=== PATIENT | female | born 1935 | race Caucasian/White ===

== ENCOUNTER 2016-10-03 10:49 | Emergency (ER) | payer MEDICARE, OTHER ==
--- NOTE | 2016-10-03 12:32 | ER Document Report ---
ED Extremity Problem, Lower - General Chief Complaint: Knee Injury Stated Complaint: KNEE PAIN Time seen by provider: 12:27 Mode of Arrival: Medic Information source: Patient Notes: 81-year-old female presents to ED for report of her left knee popping when she was walking across the floor with her walker yesterday causing her to have to sit in her walker seat. She does have chronic pain in this leg and has for a long time. She just thinks that her pain is different than her normal pain. TRAVEL OUTSIDE OF THE [place] IN LAST 30 DAYS: No - HPI Patient complains to provider of: Pain, Swelling Location: Knee - Left Occurred: Other - Chronic Where: Home, Indoors Onset/Duration: Intermittent Quality of pain: Sharp Severity: Severe Pain Level: 5 Recent injury: Possibly Associated symptoms: Painful ambulation Exacerbated by: Movement, Walking Relieved by: Nothing - Related Data Allergies/Adverse Reactions: No Known Allergies Allergy (Verified 10/28/14 13:49) Past Medical History - General Information source: Patient - Social History Smoking Status: Never Smoker Cigarette use (# per day): No Chew tobacco use (# tins/day): No Smoking Education Provided: No Frequency of alcohol use: None Drug Abuse: None Lives with: Family Family History: Reviewed & Not Pertinent Patient has suicidal ideation: No Patient has homicidal ideation: No - Past Medical History Cardiac Medical History: Reports: Hx Atrial Fibrillation, Hx Hypercholesterolemia, Hx Hypertension, Hx Heart Murmur Pulmonary Medical History: Reports: Hx Pneumonia EENT Medical History: Reports: None Neurological Medical History: Reports: Hx Migraine Endocrine Medical History: Reports: None Renal/ Medical History: Reports: None Malignancy Medical History: Reports: None GI Medical History: Reports: Hx Gastroesophageal Reflux Disease, Hx Ulcer Musculoskeltal Medical History: 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 Denies: Hx Mastectomy, Hx Open Heart Surgery, Hx Pacemaker - Immunizations Hx Diphtheria, Pertussis, Tetanus Vaccination: No Hx Pneumococcal Vaccination: 06/23/14 Physical Exam - Vital signs Vitals: Temp Pulse Resp BP Pulse Ox 97.6 F 86 20 120/76 100 10/03/16 11:13 10/03/16 11:13 10/03/16 11:13 10/03/16 11:13 10/03/16 11:13 Interpretation: Normal - General General appearance: Appears well, Alert - HEENT Head: Normocephalic, Atraumatic Eyes: Normal Pupils: PERRL - Respiratory Respiratory status: No respiratory distress Chest status: Nontender Breath sounds: Normal Chest palpation: Normal - Cardiovascular Rhythm: Regular Heart sounds: Normal auscultation Murmur: No - Abdominal Inspection: Normal Distension: No distension Bowel sounds: Normal Tenderness: Nontender Organomegaly: No organomegaly - Back Back: Normal, Nontender - Extremities General upper extremity: Normal inspection, Nontender, Normal color, Normal ROM , Normal temperature General lower extremity: Normal color, Normal ROM, Normal temperature, Normal weight bearing. No: Karen's sign Knee: Tender - left swelling, Joint effusion, Laxity with varus stress, Pain with ROM, Patellar tendon intact, Tender joint line - Neurological Neuro grossly intact: Yes Cognition: Normal Orientation: AAOx4 Stacy Coma Scale Eye Opening: Spontaneous Stacy Coma Scale Verbal: Oriented Hardtner Coma Scale Motor: Obeys Commands Stacy Coma Scale Total: 15 Speech: Normal Motor strength normal: LUE, RUE, LLE, RLE Sensory: Normal - Psychological Associated symptoms: Normal affect, Normal mood - Skin Skin Temperature: Warm Skin Moisture: Dry Skin Color: Normal Course - Re-evaluation Re-evalutation: 10/03/16 14:21 Discussed x-ray with patient and family and written report given to family for follow-up with orthopedics. - Vital Signs Vital signs: Temp Pulse Resp BP Pulse Ox 97.6 F 96 20 114/56 L 96 10/03/16 11:13 10/03/16 15:09 10/03/16 11:13 10/03/16 13:57 10/03/16 15:09 - Diagnostic Test Radiology reviewed: Image reviewed, Reports reviewed Discharge - Discharge Clinical Impression: left knee arthritis severe Condition: Stable Disposition: HOME, SELF-CARE Additional Instructions: Arthritis Your symptoms are due to arthritis. Arthritis is an inflammation of the joints. There are many types -- osteoarthritis (due to "wear and tear"), auto- immmune arthritis (such as rheumatoid, lupus, Lauren's, and others), and crystal -induced arthritis (such as gout and pseudogout). The physician's examination, combined with laboratory tests, will determine the cause of your arthritis. All types of arthritis are treated with antiinflammatory medications. Other medication may be required for special types of arthritis, or if your problem does not respond to the antiinflammatory medicine. Local warmth may be helpful. Move the involved joints through the full range of motion daily. Mild exercise is usually still possible for most persons with arthritis (ask your physician). Swimming provides good exercise without damaging the joints. Contact the physician if you are worsening in any way. Left knee pain increased arthritis Oral Narcotic Medication You have been given a prescription for pain control. This medication is a narcotic. It's best taken with food, as nausea can result if taken on an empty stomach. Don't operate machinery or drive within six hours of taking this medication. Do not combine this medicine with alcohol, or with any medication which can cause sedation (such as cold tablets or sleeping pills) unless you get permission from the physician. Narcotics tend to cause constipation. If possible, drink plenty of fluids and eat a diet high in fiber and fruits. Please take a dose of Nila lax with every dose of narcotics. You use one Full of Nila lax in 8 ounces of water. FOLLOW-UP CARE: If you have been referred to a physician for follow-up care, call the physician s office for an appointment as you were instructed or within the next two days. If you experience worsening or a significant change in your symptoms, notify the physician immediately or return to the Emergency Department at any time for re-evaluation. Referrals: DERICK SORTO MD [Primary Care Provider] - Follow up as needed DOMINIC ROMERO MD [ACTIVE STAFF] - Follow up in 3-5 days
[2016-10-03 13:57] VITALS: BP 114/56
[2016-10-03] MEDS ORDERED: HYDROCODONE/ACETAMINOPHEN 5-325 MG 6 TAB/DSPK PO PRN (14:24)
== END 2016-10-03 15:07 | disposition home or self-care (01) ==
LOC: ER 10:49
DX: M17.12 Unilateral primary osteoarthritis, left knee (principal); G89.29 Other chronic pain; I48.91 Unspecified atrial fibrillation; E78.00 Pure hypercholesterolemia, unspecified; I10 Essential (primary) hypertension; K21.9 Gastro-esophageal reflux disease without esophagitis; Z90.49 Acquired absence of other specified parts of digestive tract; Z90.710 Acquired absence of both cervix and uterus
CPT/HCPCS: 99283; 73562; A9270

== ENCOUNTER → 2016-12-25 | Outpatient (CLI) | payer MEDICARE, OTHER ==
[2016-12-25 12:10] LABS: ANION GAP 14 (5-19); BLOOD UREA NITROGEN 17 mg/dL (7-20); CALCIUM 9.7 mg/dL (8.4-10.2); CARBON DIOXIDE 22 mmol/L (22-30); CHLORIDE 102 mmol/L (98-107); CHOLESTEROL 122.88 mg/dL (0-200); CREATININE RESULT 0.72 mg/dL (0.52-1.25); Direct HDL 60 mg/dL (>40); GLUCOSE 96 mg/dL (75-110); POTASSIUM 4.7 mmol/L (3.6-5.0); SODIUM 137.9 mmol/L (137-145); TRIGLYCERIDES 123 mg/dL (<150)
[2016-12-25 12:35] LABS: DIRECT LDL 34 mg/dL (<100)
== END ==
LOC: OD 11:04
PROVIDERS: ATTEND Family Medicine
DX: E03.9 Hypothyroidism, unspecified (principal); I10 Essential (primary) hypertension; Z79.899 Other long term (current) drug therapy; E78.2 Mixed hyperlipidemia
CPT/HCPCS: 36415; 80048; 80061; 83036; 84443

== ENCOUNTER → 2017-12-17 | Outpatient (CLI) | payer MEDICARE, OTHER ==
[2017-12-17 11:49] LABS: ANION GAP 12 (5-19); BLOOD UREA NITROGEN 24 mg/dL (7-20); CALCIUM 9.7 mg/dL (8.4-10.2); CARBON DIOXIDE 25 mmol/L (22-30); CHLORIDE 98 mmol/L (98-107); CHOLESTEROL 117.44 mg/dL (0-200); GLUCOSE 89 mg/dL (75-110); POTASSIUM 4.3 mmol/L (3.6-5.0); SODIUM 134.5 mmol/L (137-145); TRIGLYCERIDES 107 mg/dL (<150)
[2017-12-17 12:11] LABS: DIRECT LDL 32 mg/dL (<100)
== END ==
LOC: OD 10:33
PROVIDERS: ATTEND Family Medicine
DX: E03.9 Hypothyroidism, unspecified (principal); I10 Essential (primary) hypertension; Z79.899 Other long term (current) drug therapy; E78.2 Mixed hyperlipidemia
CPT/HCPCS: 36415; 80048; 80061; 83036; 84443

== ENCOUNTER → 2019-01-22 | Outpatient (CLI) | payer MEDICARE, OTHER ==
[2019-01-22 12:13] LABS: ANION GAP 11 (5-19); BLOOD UREA NITROGEN 13 mg/dL (7-20); CALCIUM 9.8 mg/dL (8.4-10.2); CARBON DIOXIDE 26 mmol/L (22-30); CHLORIDE 94 mmol/L (98-107); CHOLESTEROL 115.66 mg/dL (0-200); GLUCOSE 87 mg/dL (75-110); POTASSIUM 4.8 mmol/L (3.6-5.0); SODIUM 130.7 mmol/L (137-145); TRIGLYCERIDES 97 mg/dL (<150)
[2019-01-22 12:24] LABS: DIRECT LDL 39 mg/dL (<100)
== END ==
LOC: OD 10:55
PROVIDERS: ATTEND Family Medicine
DX: E03.9 Hypothyroidism, unspecified (principal); I10 Essential (primary) hypertension; E78.2 Mixed hyperlipidemia; Z79.899 Other long term (current) drug therapy
CPT/HCPCS: 36415; 80048; 80061; 83036; 84443

== ENCOUNTER → 2019-10-16 | Outpatient (CLI) | payer MEDICARE, OTHER ==
--- NOTE | 2019-10-16 15:12 | RADIOLOGY REPORT (SQ) ---
EXAM DESCRIPTION: ACUTE ABDOMEN SERIES COMPLETED DATE/TIME: 10/16/2019 2:36 pm REASON FOR STUDY: R10.9 UNSPECIFIED ABDOMINAL PAIN R10.9 UNSPECIFIED ABDOMINAL PAIN COMPARISON: None. NUMBER OF VIEWS: Three views. TECHNIQUE: Frontal chest, supine abdomen and upright/decubitus abdomen radiographic images acquired. LIMITATIONS: None. FINDINGS: CHEST: Lungs clear of infiltrates. FREE AIR: None. No abnormal gas collections. BOWEL GAS PATTERN: Nonobstructive pattern. No dilated loops or air fluid levels. CALCIFICATIONS: No suspicious calcifications. HARDWARE: None in the abdomen. SOFT TISSUES: No gross mass or suggestion of organomegaly. BONES: No acute fracture. No worrisome bone lesions. OTHER: No other significant finding. IMPRESSION: NO RADIOGRAPHIC EVIDENCE FOR ACUTE ABDOMINAL DISEASE. TECHNICAL DOCUMENTATION: JOB ID: [id number] [employer]- All Rights Reserved Reading location - IP/workstation name: [email or web address]
== END ==
LOC: RAD 13:58
PROVIDERS: ATTEND Family Medicine
DX: R10.9 Unspecified abdominal pain (principal); R07.9 Chest pain, unspecified; E66.01 Morbid (severe) obesity due to excess calories
CPT/HCPCS: 74022

== ENCOUNTER 2020-02-12 07:39 | Inpatient (IN) | payer MEDICARE, OTHER ==
[2020-02-12 08:32] LABS: HEMATOCRIT 37.9 % (36.0-47.0); HEMOGLOBIN 13.3 g/dL (12.0-15.5); MEAN CORPUSCULAR HEMOGLOBIN 31.8 pg (27.0-33.4); MEAN CORPUSCULAR HGB CONC 35.2 g/dL (32.0-36.0); MEAN CORPUSCULAR VOLUME 91 fl (80-97); PLATELET COUNT 298 10^3/uL (150-450); RED BLOOD COUNT 4.18 10^6/uL (3.72-5.28); WHITE BLOOD COUNT 27.7 10^3/uL (4.0-10.5)
[2020-02-12 08:50] LABS: APPEARANCE,URINE SLIGHTLY-CLOUDY; BILIRUBIN,URINE NEGATIVE (NEGATIVE); COLOR,URINE AMBER; GLUCOSE, URINE NEGATIVE (NEGATIVE); KETONES,URINE NEGATIVE (NEGATIVE); PROTEIN,URINE NEGATIVE (NEGATIVE); URINE SPECIFIC GRAVITY 1.016
[2020-02-12 08:55] LABS: ABSOLUTE LYMPHOCYTES# (MANUAL) 1.4 10^3/uL (0.5-4.7); ABSOLUTE MONOCYTES # (MANUAL) 1.1 10^3/uL (0.1-1.4); BASOPHILS % (MANUAL) 0 % (0-2); EOSINOPHILS % (MANUAL) 0 % (0-6); LYMPHOCYTES % (MANUAL) 5 % (13-45); MONOCYTES % (MANUAL) 4 % (3-13); SEGMENTED NEUTROPHILS % (MAN) 91 % (42-78); TOTAL CELLS COUNTED 100
[2020-02-12 08:56] LABS: ANISOCYTOSIS SLIGHT; PLATELET CLUMPS PRESENT; PLATELET COMMENT ADEQUATE; PLATELET LARGE PRESENT
[2020-02-12 08:58] LABS: HYPOCHROMASIA SLIGHT; OVALOCYTES SLIGHT
[2020-02-12 09:02] LABS: ALBUMIN 3.1 g/dL (3.5-5.0); ALKALINE PHOSPHATASE 97 U/L (38-126); ASPARTATE AMINO TRANSFERASE 29 U/L (14-36); BILIRUBIN,DIRECT 0.1 mg/dL (0.0-0.4); BLOOD UREA NITROGEN 27 mg/dL (7-20); CALCIUM 8.7 mg/dL (8.4-10.2); CARBON DIOXIDE 24 mmol/L (22-30); CHLORIDE 81 mmol/L (98-107); CREATINE KINASE 133 U/L (30-135); GLUCOSE 114 mg/dL (75-110); POTASSIUM 3.2 mmol/L (3.6-5.0); TOTAL PROTEIN 5.7 g/dL (6.3-8.2)
[2020-02-12 09:04] LABS: ANION GAP 13 (5-19)
[2020-02-12 09:18] LABS: CREATINE KINASE MB 3.04 ng/mL (<4.55); TROPONIN I 0.031 ng/mL
[2020-02-12] MEDS ORDERED: NORMAL SALINE IV ONE (09:48)
[2020-02-12] MEDS ORDERED: VANCOMYCIN HCL INJ 1000 MG VIAL IV ONE (09:48)
[2020-02-12] MEDS ORDERED: PIPERACILLIN/TAZOBACTAM 4.5 GM VIAL IV ONE (09:48)
--- NOTE | 2020-02-12 09:59 | ER Document Report ---
ED General - General Chief Complaint: Weakness Stated Complaint: LOW BLOOD PRESSURE Time Seen by Provider: 02/12/20 09:04 Primary Care Provider: DERICK VIVAR MD [Primary Care Provider] - Follow up as needed TRAVEL OUTSIDE OF THE [place] IN LAST 30 DAYS: No - HPI Notes: Chief complaint: Generalized weakness and fall History of present illness: 84-year-old female followed by Dr. Vivar with history of chronic atrial fibrillation and chronic lymphedema of both lower extremities essentially bedbound at home and cared for primarily by her grandson who is in his 30s now transported here via EMS after call for a fall at home when the she attempted to get up to the toilet. She has been having watery diarrhea for several days. She is weak and not eating and drinking well. She has recently developed shingles. She denies any recent treatment with antibiotics. She has been incontinent of urine. There are no known allergies. EMS reported blood pressure of 85 systolic at home. Her blood pressure came up above 120 after she received a 1 L bolus of lactated Ringer's per EMS. - Related Data Allergies/Adverse Reactions: No Known Allergies Allergy (Verified 04/15/19 05:51) Past Medical History - General Information source: Patient, Emergency Med Personnel, [facility] Records - Social History Smoking Status: Never Smoker Frequency of alcohol use: None Drug Abuse: None Family History: Reviewed & Not Pertinent Patient has homicidal ideation: No - Past Medical History Cardiac Medical History: Reports: Hx Atrial Fibrillation, Hx Hypercholesterolemia, Hx Hypertension, Hx Heart Murmur Denies: Hx Coronary Artery Disease, Hx Heart Attack Pulmonary Medical History: Denies: Hx Asthma, Hx Bronchitis, Hx COPD, Hx Pneumonia Neurological Medical History: Reports: Hx Migraine. Denies: Hx Cerebrovascular Accident, Hx Seizures GI Medical History: Reports: Hx Gastroesophageal Reflux Disease, Hx Ulcer. 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 Denies: Hx Mastectomy, Hx Open Heart Surgery, Hx Pacemaker - Immunizations Hx Diphtheria, Pertussis, Tetanus Vaccination: - UNSURE Hx Pneumococcal Vaccination: 06/23/14 Review of Systems - Review of Systems Notes: Constitutional: Generalized weakness. Negative for fever. HENT: Negative for sore throat. Eyes: Negative for visual changes. Cardiovascular: Negative for chest pain. Respiratory: Negative for shortness of breath. Gastrointestinal: As per HPI. Genitourinary: Negative for dysuria. Musculoskeletal: Negative for back pain. Skin: As per HPI. Neurological: Negative for headaches, focal weakness or numbness. 10 point ROS negative except as marked above and in HPI. Physical Exam - Vital signs Vitals: Temp Pulse Resp BP Pulse Ox 97.8 F 78 20 109/72 95 02/12/20 08:23 02/12/20 08:23 02/12/20 08:23 02/12/20 08:23 02/12/20 08:23 - Notes Notes: GENERAL: Frail elderly female who appears dehydrated and very weak. SKIN: Pale with diminished turgor. Crusted pustules over the left posterior lateral chest area consistent with herpes zoster. HEAD: Mild bitemporal wasting. EYES: Eyes appear sunken PERRLA. EOMI. Conjunctivae pale and sclerae clear. EARS: CANALS AND TMS CLEAR. NOSE: CLEAR. MOUTH: Tacky mucosa. Poor dentition. No stridor or edema. No drooling. NECK: Supple. No masses or thyromegaly. No adenopathy. Carotids 2+ without bruits. No JVD. BACK: Symmetrical without tenderness. CHEST: Respirations unlabored. Breath sounds clear and symmetrical. HEART: Regular rhythm. No murmur gallop or rub. ABDOMEN: Multiple healed surgical scars. Soft nontender without masses, organomegaly or rebound. Bowel sounds normally active. No bruits. GENITALIA: Normal female. EXTREMITIES: 4+ lymphedema both lower extremities. Muscular wasting of both feet with crusting lichenification of the plantar aspect of the left foot. No calf tenderness. Cap refill less than 1.5 seconds. Dorsalis pedis and posterior tibial pulses 2 + and symmetrical. NEUROLOGICAL: GCS 15. Alert and oriented x3. Fluent speech. Cranial nerves II through XII intact. Sensorimotor and cerebellar normal. Normal tone. PSYCHIATRIC: Appropriate affect. Course - Re-evaluation Re-evalutation: 02/12/20 12:59 This lady is hyponatremic and hypokalemic and clinically looks septic. Her lactate is elevated 2.7. She was hypotensive when EMS got her a lows this corrected with IV crystalloids. She has 27,000 white count. Source of infection is not clear current. Her urine is unremarkable. She has mild acute kidney injury with a creatinine of 1.27. Her chest x-ray is normal. I performed a CT abdomen and pelvis and she has postsurgical changes and some nonspecific dilated loops of small bowel most consistent with ileus. Blood cultures were drawn. I have started her on IV Zosyn and vancomycin. She is getting additional IV hydration. Case has been discussed with and she will be admitted to the hospitalist service. - Vital Signs Vital signs: Temp Pulse Resp BP Pulse Ox 97.7 F 78 17 141/86 H 95 02/12/20 10:18 02/12/20 08:23 02/12/20 10:18 02/12/20 10:18 02/12/20 09:53 - Laboratory Result Diagrams: 02/12/20 07:56 02/12/20 07:56 Laboratory results interpreted by me: 02/12/20 02/12/20 02/12/20 07:56 07:56 07:56 WBC 27.7 H Seg Neuts % (Manual) 91 H Lymphocytes % (Manual) 5 L Abs Neuts (Manual) 25.2 H Sodium 118.1 L* Potassium 3.2 L Chloride 81 L BUN 27 H Creatinine 1.28 H Est GFR ( Amer) 48 L Est GFR (MDRD) Non-Af 40 L Glucose 114 H Lactic Acid 2.6 H Total Protein 5.7 L Albumin 3.1 L Urine Urobilinogen 02/12/20 07:56 WBC Seg Neuts % (Manual) Lymphocytes % (Manual) Abs Neuts (Manual) Sodium Potassium Chloride BUN Creatinine Est GFR ( Amer) Est GFR (MDRD) Non-Af Glucose Lactic Acid Total Protein Albumin Urine Urobilinogen 2.0 H - EKG Interpretation by Me Additional EKG results interpreted by me: 02/12/20 13:09 Twelve-lead EKG from 0855 hrs. reviewed contemporaneously by me demonstrating atrial fibrillation with a ventricular rate of 96. Intervals are normal. Occasional unifocal PVCs present. No acute ST changes. Comparison to prior tracing from 04/08/2019 shows interval development of PVCs with no other new findings. Discharge - Discharge Clinical Impression: Hyponatremia, Hypokalemia Sepsis Qualifiers: Sepsis type: sepsis due to unspecified organism Sepsis acute organ dysfunction status: unspecified Qualified Code(s): A41.9 - Sepsis, unspecified organism Condition: Fair Disposition: ADMITTED INPATIENT Admitting Provider: Princess (Hospitalist) Unit Admitted: Telemetry Referrals: DERICK VIVAR MD [Primary Care Provider] - Follow up as needed
[2020-02-12 10:01] LABS: VENOUS BLOOD BASE EXCESS 0.7 mmol/L; VENOUS BLOOD HCO3 25.9 mmol/L (20-32); VENOUS BLOOD PCO2 43.6 mmHg (35-63); VENOUS BLOOD PH 7.39 (7.30-7.42)
[2020-02-12 10:11] LABS: PROTHROMBIN TIME 15.3 SEC (11.4-15.4)
--- NOTE | 2020-02-12 10:15 | RADIOLOGY REPORT (SQ) ---
EXAM DESCRIPTION: CHEST SINGLE VIEW IMAGES COMPLETED DATE/TIME: 02/12/2020 10:07 am REASON FOR STUDY: sepsis COMPARISON: 07/24/2014. EXAM PARAMETERS: NUMBER OF VIEWS: One view. TECHNIQUE: Single frontal radiographic view of the chest acquired. RADIATION DOSE: NA LIMITATIONS: None. FINDINGS: LUNGS AND PLEURA: No opacities, masses or pneumothorax. No pleural effusion. MEDIASTINUM AND HILAR STRUCTURES: No masses. Contour normal. HEART AND VASCULAR STRUCTURES: Heart normal in size. Ectatic aorta. Normal vasculature. BONES: No acute findings. HARDWARE: Clips in the upper abdomen. OTHER: No other significant finding. IMPRESSION: NO ACUTE RADIOGRAPHIC FINDING IN THE CHEST. TECHNICAL DOCUMENTATION: JOB ID: [id number] 2010 [email or web address]- All Rights Reserved Reading location - IP/workstation name: [email or web address]
--- NOTE | 2020-02-12 11:37 | EKG REPORT ---
SEVERITY:- ABNORMAL ECG - ATRIAL FIBRILLATION, V-RATE 79-115 MULTIPLE VENTRICULAR PREMATURE COMPLEXES NONSPECIFIC REPOL ABNORMALITY, DIFFUSE LEADS, THESE ARE NEW IN THE ANTEROLAT LEADS COMPARED TO EKG. : Confirmed by: Yoseph Pierson MD 12-Feb-2020 11:36:46
--- NOTE | 2020-02-12 12:09 | RADIOLOGY REPORT (SQ) ---
EXAM DESCRIPTION: CT ABD/PELVIS WITH IV ONLY IMAGES COMPLETED DATE/TIME: 02/12/2020 11:20 am REASON FOR STUDY: sepsis COMPARISON: None. TECHNIQUE: CT scan of the abdomen and pelvis performed using helical scanning technique with dynamic intravenous contrast injection. No oral contrast. Images reviewed with lung, soft tissue, and bone windows. Reconstructed coronal and sagittal MPR images reviewed. Delayed images for evaluation of the urinary system also acquired. All images stored on PACS. All CT scanners at this facility use dose modulation, iterative reconstruction, and/or weight based d osing when appropriate to reduce radiation dose to as low as reasonably achievable (ALARA). [facility]: Dose Right [facility]: CareDose [facility]: Dose Right [facility]: Teradose 4D [facility]: Buggl CONTRAST TYPE AND DOSE: contrast/concentration: Isovue 350.00 mg/ml; Total Contrast Delivered: 81.0 ml; Total Saline Delivered: 68.0 ml RENAL FUNCTION: BUN 27 creatinine 1.28. RADIATION DOSE: CT Rad equipment meets quality standard of care and radiation dose reduction techniq ues were employed. CTDIvol: 10.8 - 15.1 mGy. DLP: 1210 mGy-cm.. LIMITATIONS: None. FINDINGS: LOWER CHEST: No significant findings. No nodules or infiltrates. LIVER: Normal size. No masses. No dilated ducts. SPLEEN: Normal size. No focal lesions. PANCREAS: No masses. No significant calcifications. No adjacent inflammation or peripancreatic fluid collections. Pancreatic duct not dilated. GALLBLADDER: Surgically absent. ADRENAL GLANDS: No significant masses or asymmetry. RIGHT KIDNEY AND URETER: No solid masses. No significant calcifications. No hydronephrosis or hyd roureter. LEFT KIDNEY AND URETER: No solid masses. No significant calcifications. No hydronephrosis or hydr oureter. AORTA AND VESSELS: No aneurysm. No dissection. Renal arteries, SMA, celiac without stenosis. RETROPERITONEUM: No retroperitoneal adenopathy, hemorrhage or masses. BOWEL AND PERITONEAL CAVITY: Surgical changes. Numerous clips in the left upper quadrant. Prominent stool in the rectum. Mild diffuse small bowel dilation throughout. No masses or inflammatory robbins es. No free fluid or peritoneal masses. APPENDIX: Surgically absent. PELVIS: No mass. No free fluid. Catheter in the bladder. ABDOMINAL WALL: No masses. No hernias. BONES: No significant or acute findings. Degenerative changes in the spine. OTHER: No other significant finding. IMPRESSION: 1. SURGICAL CHANGES IN THE ABDOMEN. MILD DIFFUSE SMALL BOWEL DILATION PROBABLY DUE TO ILEUS. MECHAN ICAL OBSTRUCTION LESS LIKELY BUT CANNOT BE EXCLUDED. THERE IS PROMINENT STOOL IN THE RECTUM WHICH CO ULD BE A FECAL IMPACTION. 2. OTHER CHRONIC CHANGES ABOVE. NO OTHER SIGNIFICANT OR ACUTE FINDING IN THE ABDOMEN OR PELVIS ON CT SCAN WITH IV CONTRAST. TECHNICAL DOCUMENTATION: JOB ID: [id number] Quality ID # [id number]: Final reports with documentation of one or more dose reduction techniques (e.g., Au tomated exposure control, adjustment of the mA and/or kV according to patient size, use of iterative reconstruction technique) 2010 [employer]- All Rights Reserved Reading location - IP/workstation name: [email or web address]
[2020-02-12] MEDS ORDERED: ACETAMINOPHEN 325 MG TABLET PO ONE (14:47)
[2020-02-12 14:48] LABS: ANION GAP 11 (5-19); BLOOD UREA NITROGEN 27 mg/dL (7-20); CALCIUM 8.1 mg/dL (8.4-10.2); CARBON DIOXIDE 22 mmol/L (22-30); CHLORIDE 86 mmol/L (98-107); GLUCOSE 110 mg/dL (75-110); POTASSIUM 3.6 mmol/L (3.6-5.0)
[2020-02-12] MEDS ORDERED: NORMAL SALINE 1000 ML 1,000 ML IV PRN (15:09)
[2020-02-12 15:24] LABS: C DIFFICILE GDH NEGATIVE (NEGATIVE)
[2020-02-12] MEDS: VALACYCLOVIR HCL 500 MG TABLET PO SCH (15:28)
--- NOTE | 2020-02-12 16:33 | PDOC H&P ---
History of Present Illness Admission Date/PCP: 02/12/20 13:41 DERICK SORTO MD History of Present Illness: TRINIDAD REHMAN is a 84 year old female with multiple medical comorbidities who is an awful historian. The information is therefore obtained from the chart. From what I can gather, the patient was sent here after falling off the toilet at home. She is cared for by her daughter and her son-in-law, and they could not get her up off the floor so they called EMS. They then notified someone that they could not take care of her at home anymore. Apparently she is gotten progressively weaker and more frail. I do not have any information about her recent level of p.o. intake. Her apparently when EMS came to get her as her blood pressure was low and so they gave her 1 L of LR. I brought her in the ER where she had an elevated BUN and creatinine, and a sodium of 118. She also had a leukocytosis. She was afebrile. The only thing she was complaining of was not having gotten her pain medication. She got 2 more liters of IV normal saline rapidly infused. Fortunately, this did not cause her sodium to elevate when it was checked several hours later. CT of her abdomen was unremarkable except for a mild ileus and a large stool burden. Chest x-ray was negative. Patient has had multiple loose bowel movements that were mostly watery without a lot of solid stool in the ER. She had an elevated temperature of the ER but no outright fever. She has an area on her sacrum of a suspected deep tissue injury but no broken skin. Urinalysis was unremarkable. She also has a large rash on the left side of her lower chest and upper abdomen. 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, DOMONIQUE HANDS Psychiatric Medical History: Reports: Depression Hematology: Denies: Anemia, Sickle Cell Disease Past Surgical History Past Surgical History: Reports: Appendectomy, Cholecystectomy, Hysterectomy, Tonsillectomy Denies: Amputation, Mastectomy, Pacemaker Social History Smoking Status: Never Smoker Frequency of Alcohol Use: None Hx Recreational Drug Use: No Hx Prescription Drug Abuse: No Family History Family History: Reviewed & Not Pertinent Parental Family History Reviewed: No - Unable to obtain Children Family History Reviewed: No - Unable to obtain Sibling(s) Family History Reviewed.: No - Unable to obtain Medication/Allergy Home Medications: Atorvastatin Calcium 20 mg PO DAILY 10/28/14 Candesartan/Hydrochlorothiazid [Candesartan-Hctz 16-12.5 mg Tb] 1 tab PO DAILY 03/15/16 Cetirizine HCl [Zyrtec] 10 mg PO QHS 03/15/16 Diltiazem HCl [Diltiazem 24Hr ER] 120 mg PO DAILY 03/15/16 Raloxifene HCl 60 mg PO DAILY 03/15/16 Carisoprodol [Soma] 350 mg PO TIDP PRN 04/08/19 Meloxicam [Mobic] 7.5 mg PO DAILY 04/08/19 Valacyclovir HCl [Valtrex] 1,000 mg PO TID 02/12/20 Allergies/Adverse Reactions: No Known Allergies Allergy (Verified 04/15/19 05:51) Review of Systems ROS unobtainable: Other - Part of it could be mental status, but I think this patient is also a very poor historian Physical Exam Vital Signs: Temp Pulse Resp BP Pulse Ox 100.2 F 78 19 103/55 L 95 02/12/20 15:31 02/12/20 08:23 02/12/20 15:31 02/12/20 15:31 02/12/20 09:53 Intake & Output 02/11/20 02/12/20 02/13/20 06:59 06:59 06:59 Intake Total 2120 Output Total 650 Balance 1470 Weight 70.8 kg General appearance: PRESENT: no acute distress, cooperative, disheveled, morbidly obese, other - She appears extremely frail Head exam: PRESENT: atraumatic, normocephalic Eye exam: PRESENT: EOMI, PERRLA. ABSENT: conjunctival injection, scleral icterus Ear exam: PRESENT: normal external ear exam Mouth exam: PRESENT: dry mucosa, neck supple Teeth exam: PRESENT: poor dentation Throat exam: ABSENT: post pharyngeal erythema Neck exam: PRESENT: full ROM. ABSENT: carotid bruit, JVD, lymphadenopathy, meningismus, tenderness, thyromegaly Respiratory exam: PRESENT: clear to auscultation domonique, symmetrical, unlabored. ABSENT: chest wall tenderness, crackles, prolonged expiratory phas, rhonchi, tachypnea, wheezes Cardiovascular exam: PRESENT: irregular rhythm, +S1, +S2 Pulses: PRESENT: normal carotid pulses Vascular exam: PRESENT: normal capillary refill GI/Abdominal exam: PRESENT: normal bowel sounds, soft. ABSENT: distended, guar ding, rebound, tenderness Extremities exam: PRESENT: pedal edema, other - 3+ pitting edema. 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 ABSENT: ambulatory Neurological exam: PRESENT: awake, oriented to person, oriented to place, oriented to situation, CN II-XII grossly intact. ABSENT: motor sensory deficit Psychiatric exam: PRESENT: flat affect Skin exam: PRESENT: dry, warm, other - She has what appears to be a zoster rash in a dermatomal distribution under the left lower chest under the breast around the left lower chest towards the upper back. Results Laboratory Results: 02/12/20 07:56 02/12/20 14:19 02/12/20 02/12/20 02/12/20 07:54 07:56 07:56 WBC 27.7 H RBC 4.18 Hgb 13.3 Hct 37.9 MCV 91 MCH 31.8 MCHC 35.2 RDW 14.0 Plt Count 298 Seg Neutrophils % Not Reportable VBG pH VBG pCO2 VBG HCO3 VBG Base Excess Sodium 118.1 L* Potassium 3.2 L Chloride 81 L Carbon Dioxide 24 Anion Gap 13 BUN 27 H Creatinine 1.28 H Est GFR ( Amer) 48 L Glucose 114 H Lactic Acid Calcium 8.7 Total Bilirubin 1.0 AST 29 Alkaline Phosphatase 97 Total Protein 5.7 L Albumin 3.1 L TSH Urine Color Cancelled Urine Appearance Cancelled Urine pH Cancelled Ur Specific [place] Cancelled Urine Protein Cancelled Urine Glucose (UA) Cancelled Urine Ketones Cancelled Urine Blood Cancelled Urine RBC (Auto) Cancelled 02/12/20 02/12/20 02/12/20 07:56 07:56 09:35 WBC RBC Hgb Hct MCV MCH MCHC RDW Plt Count Seg Neutrophils % VBG pH 7.39 VBG pCO2 43.6 VBG HCO3 25.9 VBG Base Excess 0.7 Sodium Potassium Chloride Carbon Dioxide Anion Gap BUN Creatinine Est GFR ( Amer) Glucose Lactic Acid 2.6 H Calcium Total Bilirubin AST Alkaline Phosphatase Total Protein Albumin TSH Urine Color DELFINO Urine Appearance SLIGHTLY-CLOUDY Urine pH 5.0 Ur Specific [place] 1.016 Urine Protein NEGATIVE Urine Glucose (UA) NEGATIVE Urine Ketones NEGATIVE Urine Blood NEGATIVE Urine RBC (Auto) 1 02/12/20 02/12/20 02/12/20 12:04 14:19 14:19 WBC RBC Hgb Hct MCV MCH MCHC RDW Plt Count Seg Neutrophils % VBG pH VBG pCO2 VBG HCO3 VBG Base Excess Sodium 118.6 L* Potassium 3.6 Chloride 86 L Carbon Dioxide 22 Anion Gap 11 BUN 27 H Creatinine 1.03 Est GFR ( Amer) > 60 Glucose 110 Lactic Acid 1.5 Calcium 8.1 L Total Bilirubin AST Alkaline Phosphatase Total Protein Albumin TSH 1.16 Urine Color Urine Appearance Urine pH Ur Specific [place] Urine Protein Urine Glucose (UA) Urine Ketones Urine Blood Urine RBC (Auto) 02/12/20 02/12/20 07:56 07:56 Creatine Kinase 133 CK-MB (CK-2) 3.04 Troponin I 0.031 Impressions: Chest X-Ray 02/12/20 09:49 IMPRESSION: NO ACUTE RADIOGRAPHIC FINDING IN THE CHEST. Abdomen/Pelvis CT 02/12/20 10:37 IMPRESSION: 1. SURGICAL CHANGES IN THE ABDOMEN. MILD DIFFUSE SMALL BOWEL DILATION PROBABLY DUE TO ILEUS. MECHANICAL OBSTRUCTION LESS LIKELY BUT CANNOT BE EXCLUDED. THERE IS PROMINENT STOOL IN THE RECTUM WHICH COULD BE A FECAL IMPACTION. 2. OTHER CHRONIC CHANGES ABOVE. NO OTHER SIGNIFICANT OR ACUTE FINDING IN THE ABDOMEN OR PELVIS ON CT SCAN WITH IV CONTRAST. Assessment and Plan - Diagnosis (1) Leukocytosis Qualifiers: Leukocytosis type: other Qualified Code(s): D72.828 - Other elevated white blood cell count Is this a current diagnosis for this admission?: Yes Plan: She triggered for sepsis because of her leukocytosis and elevated lactic acid level. She is also had an elevated temperature. However, it is not entirely clear at this time if she has an infectious process going on, other than her shingles rash. She said she was on treatment but we not able to verify that she is been on anything. I started her on Valtrex. Stool was negative for C. difficile. Chest x-ray was negative. Abdominal CT showed mild ileus with a large stool burden. She does not have any broken skin, but does have a suspected deep tissue injury urinalysis was unremarkable. She could have an elevated temperature from her untreated shingles. We will monitor her for any other clues to infection, and if something definite is found, will intervene. (2) Herpes zoster dermatitis Is this a current diagnosis for this admission?: Yes Plan: Started Valtrex, appropriate precautions (3) Chronic acquired lymphedema Is this a current diagnosis for this admission?: Yes Plan: We will try to elevate her extremities and use compression wraps. Avoiding diuretics for now because of complications due to her blood pressure her sodium. (4) Physical deconditioning Is this a current diagnosis for this admission?: Yes Plan: When appropriate to do so, we will get a physical therapy evaluation. (5) Dehydration Is this a current diagnosis for this admission?: Yes Plan: Volume deficit has been corrected (6) Acute kidney injury Is this a current diagnosis for this admission?: Yes Plan: After 3 L of fluid, and has resolved (7) Hypokalemia Is this a current diagnosis for this admission?: Yes Plan: Initial sodium was low, repeat sodium was normal so this is resolved (8) Hyponatremia Is this a current diagnosis for this admission?: Yes Plan: She is gotten a large fluid bolus without having initially gotten a serum osmolality and a urine osmolality and a urine sodium. I have got her on some gentle normal saline right now, and over checking sodium every 4 hours. When she gets a little bit more steady state, will check serum and urine osmolalities. Free water restriction. She does take HCTZ at home and this is obviously being held. (9) Atrial fibrillation with rapid ventricular response Is this a current diagnosis for this admission?: Yes Plan: She has atrial fibrillation but is not in a rapid response at this time. Will resume her rate controlling medications as her blood pressure proves that stability. (10) Suspected deep tissue injury of unknown depth of lower back Is this a current diagnosis for this admission?: Yes Plan: Turn and reposition every 2 hours - Time Time Spent with patient: 35 or more minutes - Inpatient Certification Based on my medical assessment, after consideration of the patient's comorbidities, presenting symptoms, or acuity I expect that the services needed warrant INPATIENT care.: Yes I certify that my determination is in accordance with my understanding of Medicare's requirements for reasonable and necessary INPATIENT services [42 CFR 412.3e].: Yes Medical Necessity: Significant Comorbidiites Make Outpatient Treatment Too Risky, Need Close Monitoring Due to Risk of Patient Decompensation, Need For IV Fluids, Need For Continuous Telemetry Monitoring, Risk of Complication if Not C ared For in Hospital
[2020-02-12 19:37] LABS: ANION GAP 11 (5-19); BLOOD UREA NITROGEN 26 mg/dL (7-20); CALCIUM 8.1 mg/dL (8.4-10.2); CARBON DIOXIDE 23 mmol/L (22-30); CHLORIDE 85 mmol/L (98-107); GLUCOSE 102 mg/dL (75-110)
[2020-02-12 19:46] LABS: POTASSIUM 2.9 mmol/L (3.6-5.0)
[2020-02-12] MEDS: POTASSIUM CHLORIDE 20 MEQ/50 ML RTU IV SCH ×2 (21:34→23:36)
[2020-02-12] MEDS: HEPARIN SOD (PORCINE) 5,000 UNIT/ML 1 ML VIAL SUBCUT SCH (21:35)
[2020-02-12 23:01] LABS: BLOOD UREA NITROGEN 29 mg/dL (7-20); CALCIUM 8.1 mg/dL (8.4-10.2); CARBON DIOXIDE 23 mmol/L (22-30); CHLORIDE 86 mmol/L (98-107); GLUCOSE 100 mg/dL (75-110); POTASSIUM 3.2 mmol/L (3.6-5.0)
[2020-02-12 23:03] LABS: ANION GAP 10 (5-19)
[2020-02-13] MEDS: POTASSI CL 40 MEQ/NS 1L 1,000 ML IV PRN ×2 (01:32→23:37)
[2020-02-13 02:29] LABS: ANION GAP 11 (5-19); BLOOD UREA NITROGEN 30 mg/dL (7-20); CALCIUM 8.2 mg/dL (8.4-10.2); CARBON DIOXIDE 23 mmol/L (22-30); CHLORIDE 89 mmol/L (98-107); GLUCOSE 89 mg/dL (75-110); POTASSIUM 3.2 mmol/L (3.6-5.0)
[2020-02-13] MEDS: VALACYCLOVIR HCL 500 MG TABLET PO SCH ×2 (05:41→17:37)
[2020-02-13] MEDS: HEPARIN SOD (PORCINE) 5,000 UNIT/ML 1 ML VIAL SUBCUT SCH ×3 (05:41→21:36)
[2020-02-13 06:38] LABS: HEMATOCRIT 35.8 % (36.0-47.0); HEMOGLOBIN 12.5 g/dL (12.0-15.5); MEAN CORPUSCULAR HEMOGLOBIN 31.6 pg (27.0-33.4); MEAN CORPUSCULAR HGB CONC 35.1 g/dL (32.0-36.0); MEAN CORPUSCULAR VOLUME 90 fl (80-97); PLATELET COUNT 277 10^3/uL (150-450); RED BLOOD COUNT 3.96 10^6/uL (3.72-5.28); RED CELL DISTRIBUTION WIDTH 14.2 % (11.5-14.0)
[2020-02-13 06:59] LABS: ANION GAP 12 (5-19); BLOOD UREA NITROGEN 30 mg/dL (7-20); CALCIUM 8.2 mg/dL (8.4-10.2); CARBON DIOXIDE 19 mmol/L (22-30); CHLORIDE 91 mmol/L (98-107); GLUCOSE 85 mg/dL (75-110); POTASSIUM 3.5 mmol/L (3.6-5.0)
[2020-02-13 07:06] LABS: WHITE BLOOD COUNT 30.4 10^3/uL (4.0-10.5)
[2020-02-13] MEDS: MAGNESIUM SULFATE 1 GM/D5W 100 ML IV SCH ×2 (08:14→10:05)
[2020-02-13 10:57] LABS: PATH REVIEW PATHOLOGIST REVIEWED
[2020-02-13 11:13] LABS: ANION GAP 11 (5-19); BLOOD UREA NITROGEN 29 mg/dL (7-20); CALCIUM 8.1 mg/dL (8.4-10.2); CARBON DIOXIDE 21 mmol/L (22-30); CHLORIDE 90 mmol/L (98-107); GLUCOSE 97 mg/dL (75-110); POTASSIUM 3.5 mmol/L (3.6-5.0)
[2020-02-13] MEDS: METOPROLOL SUCCINATE 25 MG TAB.SR.24H PO SCH (15:22)
[2020-02-13] MEDS: POLYETHYLENE GLYCOL 3350 POWDER 17 GM/1 PACKET PO SCH (15:22)
[2020-02-13 16:34] LABS: ANION GAP 11 (5-19); BLOOD UREA NITROGEN 29 mg/dL (7-20); CALCIUM 8.1 mg/dL (8.4-10.2); CARBON DIOXIDE 22 mmol/L (22-30); CHLORIDE 88 mmol/L (98-107); GLUCOSE 94 mg/dL (75-110); POTASSIUM 3.7 mmol/L (3.6-5.0)
--- NOTE | 2020-02-13 16:37 | PDOC PROGRESS REPORT ---
Subjective Progress Note for:: 02/13/20 Subjective:: No adverse events overnight. She had an elevated temperature overnight but her temperatures come down without any intervention today. Her white blood cell count did go up but she still does not show any specific signs of a localizing infection. She has had a lot of liquid stool output through rectal tube but that slowed down substantially this morning. She tested negative for C. difficile. Her appetite is still very poor. She was seen by speech therapy and they recommended a diet for her. Reason For Visit: SEPSIS,HYPONATREMIA,HYPOKALEMIA Physical Exam Vital Signs: Temp Pulse Resp BP Pulse Ox 98.6 F 115 H 16 93/51 L 89 L 02/13/20 12:11 02/13/20 14:00 02/13/20 12:11 02/13/20 12:11 02/13/20 12:11 Intake & Output 02/12/20 02/13/20 02/14/20 06:59 06:59 06:59 Intake Total 2220 200 Output Total 840 Balance 1380 200 Weight 72.9 kg General appearance: PRESENT: no acute distress, cooperative, disheveled, morbidly obese, other - She appears extremely frail Respiratory exam: PRESENT: clear to auscultation travis, symmetrical, unlabored. ABSENT: chest wall tenderness, crackles, prolonged expiratory phas, rhonchi, tachypnea, wheezes Cardiovascular exam: PRESENT: irregular rhythm, +S1, +S2 Pulses: PRESENT: normal carotid pulses Vascular exam: PRESENT: normal capillary refill GI/Abdominal exam: PRESENT: normal bowel sounds, soft. ABSENT: distended, guarding, rebound, tenderness Extremities exam: PRESENT: pedal edema, other - 3+ pitting edema. 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 ABSENT: ambulatory Neurological exam: PRESENT: awake, oriented to person, oriented to place, oriented to situation Psychiatric exam: PRESENT: flat affect Skin exam: PRESENT: dry, warm, other - She has what appears to be a zoster rash in a dermatomal distribution under the left lower chest under the breast around the left lower chest towards the upper back. Results Laboratory Results: 02/13/20 06:06 02/12/20 02/12/20 02/12/20 17:46 18:58 22:30 WBC RBC Hgb Hct MCV MCH MCHC RDW Plt Count Sodium Cancelled 119.4 L* 119.2 L* Potassium Cancelled 2.9 L* 3.2 L Chloride Cancelled 85 L 86 L Carbon Dioxide Cancelled 23 23 Anion Gap Cancelled 11 10 BUN Cancelled 26 H 29 H Creatinine Cancelled 1.18 1.17 Est GFR ( Amer) Cancelled 53 L 53 L Est GFR (Non-Af Amer) Cancelled Glucose Cancelled 102 100 Calcium Cancelled 8.1 L 8.1 L Magnesium 02/13/20 02/13/20 02/13/20 02:06 06:06 06:06 WBC 30.4 H* RBC 3.96 Hgb 12.5 Hct 35.8 L MCV 90 MCH 31.6 MCHC 35.1 RDW 14.2 H Plt Count 277 Sodium 122.8 L 121.6 L Potassium 3.2 L 3.5 L Chloride 89 L 91 L Carbon Dioxide 23 19 L Anion Gap 11 12 BUN 30 H 30 H Creatinine 1.16 1.00 Est GFR ( Amer) 54 L > 60 Est GFR (Non-Af Amer) Glucose 89 85 Calcium 8.2 L 8.2 L Magnesium 1.2 L* 02/13/20 10:08 WBC RBC Hgb Hct MCV MCH MCHC RDW Plt Count Sodium 122.2 L Potassium 3.5 L Chloride 90 L Carbon Dioxide 21 L Anion Gap 11 BUN 29 H Creatinine 0.93 Est GFR ( Amer) > 60 Est GFR (Non-Af Amer) Glucose 97 Calcium 8.1 L Magnesium 02/12/20 02/12/20 07:56 07:56 Creatine Kinase 133 CK-MB (CK-2) 3.04 Troponin I 0.031 Impressions: Chest X-Ray 02/12/20 09:49 IMPRESSION: NO ACUTE RADIOGRAPHIC FINDING IN THE CHEST. Abdomen/Pelvis CT 02/12/20 10:37 IMPRESSION: 1. SURGICAL CHANGES IN THE ABDOMEN. MILD DIFFUSE SMALL BOWEL DILATION PROBABLY DUE TO ILEUS. MECHANICAL OBSTRUCTION LESS LIKELY BUT CANNOT BE EXCLUDED. THERE IS PROMINENT STOOL IN THE RECTUM WHICH COULD BE A FECAL IMPACTION. 2. OTHER CHRONIC CHANGES ABOVE. NO OTHER SIGNIFICANT OR ACUTE FINDING IN THE ABDOMEN OR PELVIS ON CT SCAN WITH IV CONTRAST. Assessment and Plan - Diagnosis (1) Leukocytosis Qualifiers: Leukocytosis type: other Qualified Code(s): D72.828 - Other elevated white blood cell count Is this a current diagnosis for this admission?: Yes Plan: Still not certain what the etiology of this is. Could be just a stress response, but we will monitoring her closely for any signs of infection. At t his point, if it is anything, it would be a stercoral colitis due to her constipation. If she shows any signs of decompensation, will likely start Cipro and Flagyl to target this. Started her on a bowel regimen today to try to loosen up some of the hard impacted stool that she has. I do not think that she would be able to retain an enema long enough for it to be efficacious. (2) Herpes zoster dermatitis Is this a current diagnosis for this admission?: Yes Plan: Started Valtrex, appropriate precautions (3) Chronic acquired lymphedema Is this a current diagnosis for this admission?: Yes Plan: We will try to elevate her extremities and use compression wraps. Avoiding diuretics for now because of complications due to her blood pressure her sodium. (4) Physical deconditioning Is this a current diagnosis for this admission?: Yes Plan: When appropriate to do so, we will get a physical therapy evaluation. (5) Dehydration Is this a current diagnosis for this admission?: Yes Plan: Volume deficit has been corrected (6) Acute kidney injury Is this a current diagnosis for this admission?: Yes Plan: After 3 L of fluid, and has resolved (7) Hypokalemia Is this a current diagnosis for this admission?: Yes Plan: Initial potassium was low, repeat potassium was normal so this is resolved (8) Hyponatremia Is this a current diagnosis for this admission?: Yes Plan: Sodium has slowly trended up. She is got another lab draw coming up soon. If her sodium continues to trend up we will continue current fluid therapy, but if it has remained stable I will likely stop fluids and just put her on a fluid restriction. (9) Atrial fibrillation with rapid ventricular response Is this a current diagnosis for this admission?: Yes Plan: She has atrial fibrillation but is not in a rapid response at this time. We have started her on a very low dose of twice a day metoprolol. (10) Suspected deep tissue injury of unknown depth of lower back Is this a current diagnosis for this admission?: Yes Plan: Turn and reposition every 2 hours (11) Hypomagnesemia Is this a current diagnosis for this admission?: Yes Plan: Replace with IV supplement - Time Time Spent with patient: 25-34 minutes
[2020-02-14] MEDS: METOPROLOL SUCCINATE 25 MG TAB.SR.24H PO SCH ×2 (05:55→17:32)
[2020-02-14] MEDS: VALACYCLOVIR HCL 500 MG TABLET PO SCH ×2 (05:55→17:32)
[2020-02-14] MEDS: HEPARIN SOD (PORCINE) 5,000 UNIT/ML 1 ML VIAL SUBCUT SCH ×3 (05:56→22:12)
[2020-02-14 06:13] LABS: HEMATOCRIT 34.4 % (36.0-47.0); MEAN CORPUSCULAR HEMOGLOBIN 31.6 pg (27.0-33.4); MEAN CORPUSCULAR VOLUME 90 fl (80-97); PLATELET COUNT 276 10^3/uL (150-450); RED BLOOD COUNT 3.81 10^6/uL (3.72-5.28); RED CELL DISTRIBUTION WIDTH 14.1 % (11.5-14.0); WHITE BLOOD COUNT 24.1 10^3/uL (4.0-10.5)
[2020-02-14 08:52] LABS: ANION GAP 10 (5-19); BLOOD UREA NITROGEN 23 mg/dL (7-20); CARBON DIOXIDE 17 mmol/L (22-30); CHLORIDE 92 mmol/L (98-107); GLUCOSE 86 mg/dL (75-110); POTASSIUM 3.8 mmol/L (3.6-5.0)
[2020-02-14] MEDS ORDERED: FUROSEMIDE INJ/PF 20 MG/2 ML SDV IV ONE (09:17)
[2020-02-14] MEDS: POLYETHYLENE GLYCOL 3350 POWDER 17 GM/1 PACKET PO SCH (09:27)
--- NOTE | 2020-02-14 17:23 | PDOC PROGRESS REPORT ---
Subjective Progress Note for:: 02/14/20 Subjective:: No adverse events overnight. Vital signs been stable. Appetite is still very poor. Sodium is actually a little bit lower today. No fevers. White blood cell count coming down without intervention. Reason For Visit: SEPSIS,HYPONATREMIA,HYPOKALEMIA Physical Exam Vital Signs: Temp Pulse Resp BP Pulse Ox 97.5 F 84 16 108/51 L 100 02/14/20 13:31 02/14/20 14:00 02/14/20 13:31 02/14/20 13:31 02/14/20 13:31 Intake & Output 02/13/20 02/14/20 02/15/20 06:59 06:59 06:59 Intake Total 2220 1440 503 Output Total 840 985 Balance 1380 455 503 Weight 72.9 kg 79.7 kg 79.9 kg General appearance: PRESENT: no acute distress, cooperative, disheveled, morbidly obese, other - She appears extremely frail Respiratory exam: PRESENT: clear to auscultation travis, symmetrical, unlabored. ABSENT: chest wall tenderness, crackles, prolonged expiratory phas, rhonchi, tachypnea, wheezes Cardiovascular exam: PRESENT: irregular rhythm, +S1, +S2 Pulses: PRESENT: normal carotid pulses Vascular exam: PRESENT: normal capillary refill GI/Abdominal exam: PRESENT: normal bowel sounds, soft. ABSENT: distended, guarding, rebound, tenderness Extremities exam: PRESENT: pedal edema, other - 3+ pitting edema. 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 ABSENT: ambulatory Neurological exam: PRESENT: awake, oriented to person, oriented to place, oriented to situation Psychiatric exam: PRESENT: flat affect Skin exam: PRESENT: dry, warm, other - She has what appears to be a zoster rash in a dermatomal distribution under the left lower chest under the breast around the left lower chest towards the upper back. Results Laboratory Results: 02/14/20 05:18 02/14/20 05:18 02/14/20 02/14/20 02/14/20 05:18 05:18 05:18 WBC 24.1 H RBC 3.81 Hgb 12.0 Hct 34.4 L MCV 90 MCH 31.6 MCHC 35.0 RDW 14.1 H Plt Count 276 Sodium 119.1 L* Potassium 3.8 Chloride 92 L Carbon Dioxide 17 L Anion Gap 10 BUN 23 H Creatinine 0.55 Est GFR ( Amer) > 60 Glucose 86 Calcium 8.0 L Magnesium 1.8 02/12/20 14:40 Stool - Stool - Final 02/12/20 02/12/20 07:56 07:56 Creatine Kinase 133 CK-MB (CK-2) 3.04 Troponin I 0.031 Impressions: Chest X-Ray 02/12/20 09:49 IMPRESSION: NO ACUTE RADIOGRAPHIC FINDING IN THE CHEST. Abdomen/Pelvis CT 02/12/20 10:37 IMPRESSION: 1. SURGICAL CHANGES IN THE ABDOMEN. MILD DIFFUSE SMALL BOWEL DILATION PROBABLY DUE TO ILEUS. MECHANICAL OBSTRUCTION LESS LIKELY BUT CANNOT BE EXCLUDED. THERE IS PROMINENT STOOL IN THE RECTUM WHICH COULD BE A FECAL IMPACTION. 2. OTHER CHRONIC CHANGES ABOVE. NO OTHER SIGNIFICANT OR ACUTE FINDING IN THE ABDOMEN OR PELVIS ON CT SCAN WITH IV CONTRAST. Assessment and Plan - Diagnosis (1) Leukocytosis Qualifiers: Leukocytosis type: other Qualified Code(s): D72.828 - Other elevated white blood cell count Is this a current diagnosis for this admission?: Yes Plan: Still not certain what the etiology of this is. Could be just a stress response, but we will monitoring her closely for any signs of infection. At this point, if it is anything, it would be a stercoral colitis due to her constipation. If she shows any signs of decompensation, will likely start Cipro and Flagyl to target this. White blood cell count coming down today. (2) Herpes zoster dermatitis Is this a current diagnosis for this admission?: Yes Plan: Started Valtrex, appropriate precautions (3) Chronic acquired lymphedema Is this a current diagnosis for this admission?: Yes Plan: We will try to elevate her extremities and use compression wraps. Avoiding diuretics for now because of complications due to her blood pressure her sodium. (4) Physical deconditioning Is this a current diagnosis for this admission?: Yes Plan: When appropriate to do so, we will get a physical therapy evaluation. (5) Dehydration Is this a current diagnosis for this admission?: Yes Plan: Resolved (6) Acute kidney injury Is this a current diagnosis for this admission?: Yes Plan: After 3 L of fluid, and has resolved (7) Hypokalemia Is this a current diagnosis for this admission?: Yes Plan: Initial potassium was low, repeat potassium was normal so this is resolved (8) Hyponatremia Is this a current diagnosis for this admission?: Yes Plan: Any fluid deficit she had has been corrected. I am stopping her IV fluids today. Placing her on fluid restriction. 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 She was on HCTZ at home and this is continued to be held. I gave her a single dose of Lasix today to try to mobilize some of her excess free water. (9) Atrial fibrillation with rapid ventricular response Is this a current diagnosis for this admission?: Yes Plan: She has atrial fibrillation but is not in a rapid response at this time. We have started her on a very low dose of twice a day metoprolol. (10) Suspected deep tissue injury of unknown depth of lower back Is this a current diagnosis for this admission?: Yes Plan: Turn and reposition every 2 hours (11) Hypomagnesemia Is this a current diagnosis for this admission?: Yes Plan: Replace with IV supplement as needed - Time Time Spent with patient: 25-34 minutes
[2020-02-14 18:52] LABS: ANION GAP 9 (5-19); BLOOD UREA NITROGEN 20 mg/dL (7-20); CALCIUM 8.3 mg/dL (8.4-10.2); CARBON DIOXIDE 22 mmol/L (22-30); CHLORIDE 90 mmol/L (98-107); GLUCOSE 80 mg/dL (75-110); POTASSIUM 4.2 mmol/L (3.6-5.0)
[2020-02-15] MEDS: HEPARIN SOD (PORCINE) 5,000 UNIT/ML 1 ML VIAL SUBCUT SCH ×3 (05:12→21:37)
[2020-02-15] MEDS: METOPROLOL SUCCINATE 25 MG TAB.SR.24H PO SCH ×2 (05:12→17:23)
[2020-02-15] MEDS: VALACYCLOVIR HCL 500 MG TABLET PO SCH ×2 (05:12→17:23)
[2020-02-15 07:05] LABS: HEMATOCRIT 34.5 % (36.0-47.0); HEMOGLOBIN 12.1 g/dL (12.0-15.5); MEAN CORPUSCULAR HEMOGLOBIN 31.7 pg (27.0-33.4); MEAN CORPUSCULAR HGB CONC 35.2 g/dL (32.0-36.0); MEAN CORPUSCULAR VOLUME 90 fl (80-97); PLATELET COUNT 314 10^3/uL (150-450); RED BLOOD COUNT 3.83 10^6/uL (3.72-5.28); RED CELL DISTRIBUTION WIDTH 14.3 % (11.5-14.0); WHITE BLOOD COUNT 12.2 10^3/uL (4.0-10.5)
[2020-02-15 07:30] LABS: ANION GAP 7 (5-19); BLOOD UREA NITROGEN 18 mg/dL (7-20); CALCIUM 8.2 mg/dL (8.4-10.2); CARBON DIOXIDE 22 mmol/L (22-30); CHLORIDE 92 mmol/L (98-107); GLUCOSE 94 mg/dL (75-110); POTASSIUM 4.3 mmol/L (3.6-5.0)
[2020-02-15] MEDS: POLYETHYLENE GLYCOL 3350 POWDER 17 GM/1 PACKET PO SCH (09:09)
[2020-02-15] MEDS: MAGNESIUM SULFATE/D5W 1 GM/100 ML RTUPB IV SCH ×2 (09:09→10:59)
[2020-02-15] MEDS ORDERED: FUROSEMIDE INJ/PF 20 MG/2 ML SDV IV ONE (09:30)
--- NOTE | 2020-02-15 15:36 | PDOC PROGRESS REPORT ---
Subjective Progress Note for:: 02/15/20 Subjective:: No adverse events overnight. Vital signs been stable. Appetite is still very poor. She responded to a dose of Lasix yesterday, urine output is increased and her sodium came up a little bit. No fevers. White blood cell count coming down without intervention. Reason For Visit: SEPSIS,HYPONATREMIA,HYPOKALEMIA Physical Exam Vital Signs: Temp Pulse Resp BP Pulse Ox 98.4 F 90 17 102/63 97 02/15/20 11:59 02/15/20 11:59 02/15/20 11:59 02/15/20 11:59 02/15/20 11:59 Intake & Output 02/14/20 02/15/20 02/16/20 06:59 06:59 06:59 Intake Total 1440 1326 580 Output Total 985 2250 1175 Balance 455 -934 -595 Weight 79.7 kg 79.6 kg General appearance: PRESENT: no acute distress, cooperative, disheveled, morbid ly obese, other - She appears extremely frail Respiratory exam: PRESENT: clear to auscultation travis, symmetrical, unlabored. ABSENT: chest wall tenderness, crackles, prolonged expiratory phas, rhonchi, tachypnea, wheezes Cardiovascular exam: PRESENT: irregular rhythm, +S1, +S2 Pulses: PRESENT: normal carotid pulses Vascular exam: PRESENT: normal capillary refill GI/Abdominal exam: PRESENT: normal bowel sounds, soft. ABSENT: distended, guarding, rebound, tenderness Extremities exam: PRESENT: pedal edema, other - 3+ pitting edema. 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 ABSENT: ambulatory Neurological exam: PRESENT: awake, oriented to person, oriented to place, oriented to situation Psychiatric exam: PRESENT: flat affect Skin exam: PRESENT: dry, warm, other - She has what appears to be a zoster rash in a dermatomal distribution under the left lower chest under the breast around the left lower chest towards the upper back. Results Laboratory Results: 02/15/20 06:55 02/15/20 06:55 02/14/20 02/15/20 02/15/20 17:55 06:55 06:55 WBC 12.2 H RBC 3.83 Hgb 12.1 Hct 34.5 L MCV 90 MCH 31.7 MCHC 35.2 RDW 14.3 H Plt Count 314 Sodium 121.3 L 121.1 L Potassium 4.2 4.3 Chloride 90 L 92 L Carbon Dioxide 22 22 Anion Gap 9 7 BUN 20 18 Creatinine 0.61 0.49 L Est GFR ( Amer) > 60 > 60 Glucose 80 94 Calcium 8.3 L 8.2 L Magnesium 1.5 L 02/12/20 14:40 Stool - Stool - Final 02/12/20 02/12/20 07:56 07:56 Creatine Kinase 133 CK-MB (CK-2) 3.04 Troponin I 0.031 Impressions: Chest X-Ray 02/12/20 09:49 IMPRESSION: NO ACUTE RADIOGRAPHIC FINDING IN THE CHEST. Abdomen/Pelvis CT 02/12/20 10:37 IMPRESSION: 1. SURGICAL CHANGES IN THE ABDOMEN. MILD DIFFUSE SMALL BOWEL DILATION PROBABLY DUE TO ILEUS. MECHANICAL OBSTRUCTION LESS LIKELY BUT CANNOT BE EXCLUDED. THERE IS PROMINENT STOOL IN THE RECTUM WHICH COULD BE A FECAL IMPACTION. 2. OTHER CHRONIC CHANGES ABOVE. NO OTHER SIGNIFICANT OR ACUTE FINDING IN THE ABDOMEN OR PELVIS ON CT SCAN WITH IV CONTRAST. Assessment and Plan - Diagnosis (1) Leukocytosis Qualifiers: Leukocytosis type: other Qualified Code(s): D72.828 - Other elevated white blood cell count Is this a current diagnosis for this admission?: Yes Plan: Still not certain what the etiology of this is, but I am suspecting that this was all just a stress response. We have had no direct intervention on this, and the white blood cell count is coming down. (2) Herpes zoster dermatitis Is this a current diagnosis for this admission?: Yes Plan: Started Valtrex, appropriate precautions (3) Chronic acquired lymphedema Is this a current diagnosis for this admission?: Yes Plan: We will try to elevate her extremities and use compression wraps. (4) Physical deconditioning Is this a current diagnosis for this admission?: Yes Plan: When appropriate to do so, we will get a physical therapy evaluation. I spoke to her daughter at length about placement options. (5) Dehydration Is this a current diagnosis for this admission?: Yes Plan: Resolved (6) Acute kidney injury Is this a current diagnosis for this admission?: Yes Plan: After 3 L of fluid, and has resolved (7) Hypokalemia Is this a current diagnosis for this admission?: Yes Plan: Initial potassium was low, repeat potassium was normal so this is resolved (8) Hyponatremia Is this a current diagnosis for this admission?: Yes Plan: Her volume deficit have been corrected and she was still hyponatremic. We gave her a dose of Lasix yesterday and she had good output and her sodium came up a little bit. It did not seem to have too adversely affecting her blood pressure. Therefore Rachel try again today with a single dose of Lasix to see how she responds. If her blood pressure tolerates, I may give her small doses scheduled twice a day. (9) Atrial fibrillation with rapid ventricular response Is this a current diagnosis for this admission?: Yes Plan: She has atrial fibrillation but is not in a rapid response at this time. We have started her on a very low dose of twice a day metoprolol. (10) Suspected deep tissue injury of unknown depth of lower back Is this a current diagnosis for this admission?: Yes Plan: Turn and reposition every 2 hours (11) Hypomagnesemia Is this a current diagnosis for this admission?: Yes Plan: Replace with IV supplement as needed - Time Time Spent with patient: 25-34 minutes
[2020-02-15] MEDS ORDERED: MORPHINE SULFATE 10 MG/ML INJ IV PRN ×3 (20:34→20:40)
[2020-02-15] MEDS ORDERED: MORPHINE SULFATE 10 MG/ML INJ ONE (20:38)
[2020-02-15] MEDS: MORPHINE SULFATE 10 MG/ML INJ IV PRN (20:41)
[2020-02-15] MEDS: BISACODYL 5 MG TABEC PO PRN (20:41)
[2020-02-16] MEDS: MORPHINE SULFATE 10 MG/ML INJ IV PRN (05:14)
[2020-02-16] MEDS: HEPARIN SOD (PORCINE) 5,000 UNIT/ML 1 ML VIAL SUBCUT SCH ×3 (05:15→22:17)
[2020-02-16] MEDS: VALACYCLOVIR HCL 500 MG TABLET PO SCH ×2 (05:15→17:48)
[2020-02-16] MEDS: METOPROLOL SUCCINATE 25 MG TAB.SR.24H PO SCH ×2 (05:15→17:48)
[2020-02-16 06:52] LABS: ANION GAP 8 (5-19); BLOOD UREA NITROGEN 20 mg/dL (7-20); CALCIUM 8.4 mg/dL (8.4-10.2); CARBON DIOXIDE 24 mmol/L (22-30); CHLORIDE 91 mmol/L (98-107); GLUCOSE 98 mg/dL (75-110); POTASSIUM 4.6 mmol/L (3.6-5.0)
[2020-02-16] MEDS: POLYETHYLENE GLYCOL 3350 POWDER 17 GM/1 PACKET PO SCH (10:08)
[2020-02-16 11:57] LABS: OSMOLALITY,URINE 342 mOsm/kg (300-900)
[2020-02-16 12:07] LABS: URINE SODIUM < 5 mmol/L (30-90)
--- NOTE | 2020-02-16 16:14 | PDOC PROGRESS REPORT ---
Subjective Progress Note for:: 02/16/20 Subjective:: She got some morphine last night and she was pretty sleepy this morning. Her appetite is still very poor. Urine output continues to respond to intermittent doses of Lasix. Vital signs remained stable. Reason For Visit: SEPSIS,HYPONATREMIA,HYPOKALEMIA Physical Exam Vital Signs: Temp Pulse Resp BP Pulse Ox 98.0 F 93 15 111/70 100 02/16/20 12:02 02/16/20 14:00 02/16/20 12:02 02/16/20 12:02 02/16/20 12:02 Intake & Output 02/15/20 02/16/20 02/17/20 06:59 06:59 06:59 Intake Total 1326 1056 Output Total 2250 1700 Balance -924 -644 Weight 79.6 kg 78.8 kg General appearance: PRESENT: no acute distress, cooperative, disheveled, morbidly obese, other - She appears extremely frail Respiratory exam: PRESENT: clear to auscultation travis, symmetrical, unlabored. ABSENT: chest wall tenderness, crackles, prolonged expiratory phas, rhonchi, tachypnea, wheezes Cardiovascular exam: PRESENT: irregular rhythm, +S1, +S2 Pulses: PRESENT: normal carotid pulses Vascular exam: PRESENT: normal capillary refill GI/Abdominal exam: PRESENT: normal bowel sounds, soft. ABSENT: distended, gu arding, rebound, tenderness Extremities exam: PRESENT: pedal edema, other - 3+ pitting edema. 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 ABSENT: ambulatory Neurological exam: PRESENT: awake, oriented to person, oriented to place, oriented to situation Psychiatric exam: PRESENT: flat affect Skin exam: PRESENT: dry, warm, other - She has what appears to be a zoster rash in a dermatomal distribution under the left lower chest under the breast around the left lower chest towards the upper back. Results Laboratory Results: 02/15/20 06:55 02/16/20 06:09 02/16/20 02/16/20 02/16/20 06:09 06:09 10:45 Sodium 122.7 L Potassium 4.6 Chloride 91 L Carbon Dioxide 24 Anion Gap 8 BUN 20 Creatinine 0.52 Est GFR ( Amer) > 60 Glucose 98 Serum Osmolality 252 L Calcium 8.4 Urine Osmolality 342 02/12/20 14:40 Stool - Stool - Final 02/12/20 14:40 Stool - Stool Stool Culture - Final NO SALMONELLA, SHIGELLA, CAMPYLOBACTER, OR E.COLI 0157 RECOVERED. NEGATIVE FOR SHIGA TOXINS 1&2. 02/12/20 02/12/20 07:56 07:56 Creatine Kinase 133 CK-MB (CK-2) 3.04 Troponin I 0.031 Impressions: Chest X-Ray 02/12/20 09:49 IMPRESSION: NO ACUTE RADIOGRAPHIC FINDING IN THE CHEST. Abdomen/Pelvis CT 02/12/20 10:37 IMPRESSION: 1. SURGICAL CHANGES IN THE ABDOMEN. MILD DIFFUSE SMALL BOWEL DILATION PROBABLY DUE TO ILEUS. MECHANICAL OBSTRUCTION LESS LIKELY BUT CANNOT BE EXCLUDED. THERE IS PROMINENT STOOL IN THE RECTUM WHICH COULD BE A FECAL IMPACTION. 2. OTHER CHRONIC CHANGES ABOVE. NO OTHER SIGNIFICANT OR ACUTE FINDING IN THE ABDOMEN OR PELVIS ON CT SCAN WITH IV CONTRAST. Assessment and Plan - Diagnosis (1) Leukocytosis Qualifiers: Leukocytosis type: other Qualified Code(s): D72.828 - Other elevated white blood cell count Is this a current diagnosis for this admission?: Yes Plan: Still not certain what the etiology of this is, but I am suspecting that this was all just a stress response. We have had no direct intervention on this, and the white blood cell count is coming down. (2) Herpes zoster dermatitis Is this a current diagnosis for this admission?: Yes Plan: Started Valtrex, appropriate precautions (3) Chronic acquired lymphedema Is this a current diagnosis for this admission?: Yes Plan: We will try to elevate her extremities and use compression wraps. (4) Physical deconditioning Is this a current diagnosis for this admission?: Yes Plan: When appropriate to do so, we will get a physical therapy evaluation. I spoke to her daughter at length about placement options. She also requested to have a conversation with hospice. (5) Dehydration Is this a current diagnosis for this admission?: Yes Plan: Resolved (6) Acute kidney injury Is this a current diagnosis for this admission?: Yes Plan: After 3 L of fluid, and has resolved (7) Hypokalemia Is this a current diagnosis for this admission?: Yes Plan: Initial potassium was low, repeat potassium was normal so this is resolved (8) Hyponatremia Is this a current diagnosis for this admission?: Yes Plan: After she had been off IV fluids, had not had any Lasix in over 24 hours, we were able to get a serum osmolality, urine osmolality, and urine sodium. Her serum osmolality was low. Urine osmolality was at the very low end of normal. Urine sodium was very low. She therefore has insufficient body sodium. Going to give her some salt tablets and monitor her response. (9) Atrial fibrillation with rapid ventricular response Is this a current diagnosis for this admission?: Yes Plan: She has atrial fibrillation but is not in a rapid response at this time. We have started her on a very low dose of twice a day metoprolol. (10) Suspected deep tissue injury of unknown depth of lower back Is this a current diagnosis for this admission?: Yes Plan: Turn and reposition every 2 hours (11) Hypomagnesemia Is this a current diagnosis for this admission?: Yes Plan: Replace with IV supplement as needed - Time Time Spent with patient: 25-34 minutes
[2020-02-16] MEDS: SODIUM CHLORIDE 1 GM TABLET PO SCH (17:48)
[2020-02-16] MEDS: ONDANSETRON HCL INJ/PF 4 MG/2 ML SDV IV PRN (20:08)
[2020-02-17] MEDS: HEPARIN SOD (PORCINE) 5,000 UNIT/ML 1 ML VIAL SUBCUT SCH ×3 (06:08→21:06)
[2020-02-17] MEDS: VALACYCLOVIR HCL 500 MG TABLET PO SCH ×2 (06:09→17:15)
[2020-02-17] MEDS: METOPROLOL SUCCINATE 25 MG TAB.SR.24H PO SCH ×2 (06:10→17:15)
[2020-02-17 07:05] LABS: ANION GAP 6 (5-19); BLOOD UREA NITROGEN 19 mg/dL (7-20); CALCIUM 8.5 mg/dL (8.4-10.2); CARBON DIOXIDE 27 mmol/L (22-30); CHLORIDE 90 mmol/L (98-107); GLUCOSE 94 mg/dL (75-110); POTASSIUM 4.7 mmol/L (3.6-5.0)
[2020-02-17] MEDS: POLYETHYLENE GLYCOL 3350 POWDER 17 GM/1 PACKET PO SCH (10:40)
[2020-02-17] MEDS: SODIUM CHLORIDE 1 GM TABLET PO SCH ×3 (10:40→17:15)
[2020-02-17] MEDS: HYDROCODONE/ACETAMINOPHEN 5-325 MG TABLET PO PRN ×2 (13:24→20:55)
--- NOTE | 2020-02-17 18:12 | PDOC PROGRESS REPORT ---
Subjective Progress Note for:: 02/17/20 Subjective:: The patient is an 84-year-old female with a past medical history of atrial fibrillation, hyperlipidemia, hypertension, heart murmur, migraine, GERD, arthritis, depression, and dementia who was admitted 02/12/2020 for SOCRATES, hyponatremia, hypokalemia, and A.fib RVR. Patient was seen on morning rounds. She was found resting in bed, comfortably, on room air. She is awake, alert and oriented to self and place. She is able to describe her living situation; lives with her grandson who works and so she is at home alone for several hours a day, and is cared for by her daughter who lives across the street. She reports of right chest wall pain; confirms that she has shingles. She does comments that she thinks the pain medication she was previously given was too strong because she "was out of it." She denies fever, chest pain, palpitations, dyspnea, abdominal pain, nausea vomiting and diarrhea. Has no other questions or concerns at this time. No concerns per nursing. Reason For Visit: SEPSIS,HYPONATREMIA,HYPOKALEMIA Physical Exam Vital Signs: Temp Pulse Resp BP Pulse Ox 97.7 F 124 H 22 H 119/80 98 02/17/20 14:30 02/17/20 14:30 02/17/20 14:30 02/17/20 14:30 02/17/20 14:30 Intake & Output 02/16/20 02/17/20 02/18/20 06:59 06:59 06:59 Intake Total 1056 558 120 Output Total 1700 400 Balance -644 158 120 Weight 78.8 kg 79.1 kg 79.1 kg General appearance: PRESENT: no acute distress, cooperative, obese, well- developed, well-nourished, other - Frail Head exam: PRESENT: atraumatic, normocephalic Eye exam: PRESENT: conjunctiva pink, EOMI, PERRLA. ABSENT: scleral icterus Mouth exam: PRESENT: moist, tongue midline Teeth exam: PRESENT: poor dentation Respiratory exam: PRESENT: clear to auscultation travis. ABSENT: rales, rhonchi, wheezes Cardiovascular exam: PRESENT: irregular rhythm, +S1, +S2. ABSENT: diastolic murmur, rubs, systolic murmur Vascular exam: PRESENT: normal capillary refill GI/Abdominal exam: PRESENT: normal bowel sounds, soft. ABSENT: distended, guarding, mass, organolmegaly, rebound, tenderness Rectal exam: PRESENT: deferred Extremities exam: PRESENT: full ROM, pedal edema, +2 edema - BLE. ABSENT: calf tenderness, clubbing Neurological exam: PRESENT: alert, awake, oriented to person, oriented to place, oriented to time, oriented to situation, CN II-XII grossly intact. ABSENT: motor sensory deficit Psychiatric exam: PRESENT: appropriate affect, normal mood. ABSENT: homicidal ideation, suicidal ideation Skin exam: PRESENT: dry, intact, warm, other - Zoster rash in a dermatomal distribution under the left lower chest under the breast around the left lower chest towards the upper back.. ABSENT: cyanosis, rash Results Laboratory Results: 02/15/20 06:55 02/17/20 06:21 02/17/20 06:21 Sodium 123.4 L Potassium 4.7 Chloride 90 L Carbon Dioxide 27 Anion Gap 6 BUN 19 Creatinine 0.50 L Est GFR ( Amer) > 60 Glucose 94 Calcium 8.5 02/12/20 09:17 Blood Blood Culture - Final NO GROWTH IN 5 DAYS 02/12/20 07:56 Blood Blood Culture - Final NO GROWTH IN 5 DAYS 02/12/20 02/12/20 07:56 07:56 Creatine Kinase 133 CK-MB (CK-2) 3.04 Troponin I 0.031 Impressions: Chest X-Ray 02/12/20 09:49 IMPRESSION: NO ACUTE RADIOGRAPHIC FINDING IN THE CHEST. Abdomen/Pelvis CT 02/12/20 10:37 IMPRESSION: 1. SURGICAL CHANGES IN THE ABDOMEN. MILD DIFFUSE SMALL BOWEL DILATION PROBABLY DUE TO ILEUS. MECHANICAL OBSTRUCTION LESS LIKELY BUT CANNOT BE EXCLUDED. THERE IS PROMINENT STOOL IN THE RECTUM WHICH COULD BE A FECAL IMPACTION. 2. OTHER CHRONIC CHANGES ABOVE. NO OTHER SIGNIFICANT OR ACUTE FINDING IN THE ABDOMEN OR PELVIS ON CT SCAN WITH IV CONTRAST. Assessment and Plan - Diagnosis (1) Herpes zoster dermatitis Is this a current diagnosis for this admission?: Yes Plan: Continue Valtrex [place] as needed for pain. Avoid IV narcotics as the patient was sedated for a prolonged length of time. Appropriate contact precautions (2) Acute kidney injury Is this a current diagnosis for this admission?: Yes Plan: Resolved; received generous IV fluids. Avoid nephrotoxic medications as able. Encourage p.o. fluids. Follow-up chemistry (3) Chronic acquired lymphedema Is this a current diagnosis for this admission?: Yes Plan: We will try to elevate her extremities and use compression wraps. (4) Dehydration Is this a current diagnosis for this admission?: Yes Plan: Resolved (5) Hypokalemia Is this a current diagnosis for this admission?: Yes Plan: Resolved. (6) Hypomagnesemia Is this a current diagnosis for this admission?: Yes Plan: Replace with IV supplement as needed Follow up magnesium level. (7) Hyponatremia Is this a current diagnosis for this admission?: Yes Plan: Gradually improved. After she had been off IV fluids, had not had any Lasix in over 24 hours, we we re able to get a serum osmolality, urine osmolality, and urine sodium. Her serum osmolality was low. Urine osmolality was at the very low end of normal. Urine sodium was very low. She therefore has insufficient body sodium. p.o. Sodium chloride tabs Liberalize dietary intake Free water restriction Follow up chemistry (8) Physical deconditioning Is this a current diagnosis for this admission?: Yes Plan: Physical therapy consultation. Daughter requesting information on SNF vs Hospice admission. Discharge planning is consulted. (9) Suspected deep tissue injury of unknown depth of lower back Is this a current diagnosis for this admission?: Yes Plan: Turn and reposition every 2 hours (10) Atrial fibrillation with rapid ventricular response Is this a current diagnosis for this admission?: Yes Plan: She has atrial fibrillation but is not in a rapid response at this time. We have started her on a very low dose of twice a day metoprolol. Not a candidate for chronic anticoagulation. (11) Leukocytosis Qualifiers: Leukocytosis type: other Qualified Code(s): D72.828 - Other elevated white blood cell count Is this a current diagnosis for this admission?: Yes Plan: Still not certain what the etiology of this is, but I am suspecting that this was all just a stress response. We have had no direct intervention on this, and the white blood cell count is coming down. - Time Time Spent with patient: 35 or more minutes Medications reviewed and adjusted accordingly: Yes Anticipated discharge: SNF - vs Home w/ Hospice
[2020-02-17] MEDS: ONDANSETRON HCL INJ/PF 4 MG/2 ML SDV IV PRN (20:55)
[2020-02-18] MEDS: HYDROCODONE/ACETAMINOPHEN 5-325 MG TABLET PO PRN (05:53)
[2020-02-18] MEDS: BISACODYL 5 MG TABEC PO PRN (05:54)
[2020-02-18] MEDS: METOPROLOL SUCCINATE 25 MG TAB.SR.24H PO SCH ×2 (05:54→17:07)
[2020-02-18] MEDS: HEPARIN SOD (PORCINE) 5,000 UNIT/ML 1 ML VIAL SUBCUT SCH ×3 (05:54→22:59)
[2020-02-18] MEDS: VALACYCLOVIR HCL 500 MG TABLET PO SCH ×2 (05:55→17:07)
[2020-02-18 06:53] LABS: HEMATOCRIT 35.6 % (36.0-47.0); HEMOGLOBIN 12.6 g/dL (12.0-15.5); MEAN CORPUSCULAR HEMOGLOBIN 32.1 pg (27.0-33.4); MEAN CORPUSCULAR HGB CONC 35.4 g/dL (32.0-36.0); MEAN CORPUSCULAR VOLUME 91 fl (80-97); PLATELET COUNT 373 10^3/uL (150-450); RED BLOOD COUNT 3.93 10^6/uL (3.72-5.28); RED CELL DISTRIBUTION WIDTH 13.9 % (11.5-14.0); WHITE BLOOD COUNT 8.8 10^3/uL (4.0-10.5)
[2020-02-18 07:18] LABS: ANION GAP 8 (5-19); BLOOD UREA NITROGEN 17 mg/dL (7-20); CALCIUM 8.8 mg/dL (8.4-10.2); CARBON DIOXIDE 26 mmol/L (22-30); CHLORIDE 89 mmol/L (98-107); GLUCOSE 111 mg/dL (75-110); POTASSIUM 5.2 mmol/L (3.6-5.0)
[2020-02-18] MEDS ORDERED: LACTULOSE SYRUP 20 GM/30 ML UDCUP PO ONE (09:30)
[2020-02-18] MEDS: MAGNESIUM OXIDE 400 MG TABLET PO SCH ×2 (09:35→17:07)
[2020-02-18] MEDS: POLYETHYLENE GLYCOL 3350 POWDER 17 GM/1 PACKET PO SCH (09:35)
[2020-02-18] MEDS: SODIUM CHLORIDE 1 GM TABLET PO SCH ×3 (09:35→17:07)
--- NOTE | 2020-02-18 18:03 | ADVANCED CARE ---
- Diagnosis (1) Herpes zoster dermatitis Diagnosis Current: Yes (2) Acute kidney injury Diagnosis Current: Yes (3) Chronic acquired lymphedema Diagnosis Current: Yes (4) Dehydration Diagnosis Current: Yes (5) Hypokalemia Diagnosis Current: Yes (6) Hypomagnesemia Diagnosis Current: Yes (7) Hyponatremia Diagnosis Current: Yes (8) Physical deconditioning Diagnosis Current: Yes (9) Suspected deep tissue injury of unknown depth of lower back Diagnosis Current: Yes (10) Atrial fibrillation with rapid ventricular response Diagnosis Current: Yes (11) Leukocytosis Diagnosis Current: Yes Attendance: The patient's daughter/primary care navigator, Carmen Ramirez, by phone. Resuscitation Status: Do Not Resuscitate Discussion: Discussed the patient's chronic medical conditions, admitting diagnoses, clinical progress, and overall prognosis given her baseline physical condition, age, and dementia. Daughter reports that she has had difficulty caring for her mother at home. She reports that the patient's grandson is staying with her temporarily but she does not have permanent live-in/24 hr care. She states that she lives nearby, and frequently has to respond to her mother in the middle of the night for her needs. She has noted a decrease in her overall oral intake, mobility status, and ability to care for ADLs. The patient's daughter tells me that she believes that her mother is "winding down," and would not want aggressive/heroic measures. She confirms DNR status. The patient's daughter requests assistance with applying for long-term Medicaid and transitioning into a long-term care living situation. She is agrees with our assessment that the patient would not benefit from short-term rehab. Did discuss option for discharge to long-term care with hospice services. She reports that likely they will transition to a comfort care only perspective in the near future but was not yet ready for hospice services at this time. Care Planning Goals: Discharge to long-term care. Outpatient palliative care consultation; likely hospice bridge versus comfort care at SNF (pending facility protocol/capabilities) in the near future. DNR/DNI Will arrange to have a MOST form delivered to family for further review of [id number] while at hospice. Time Spent: 20 min
--- NOTE | 2020-02-18 18:17 | PDOC PROGRESS REPORT ---
Subjective Progress Note for:: 02/18/20 Subjective:: The patient is an 84-year-old female with a past medical history of atrial fibrillation, hyperlipidemia, hypertension, heart murmur, migraine, GERD, arthritis, depression, and dementia who was admitted 02/12/2020 for SOCRATES, hyponatremia, hypokalemia, and A.fib RVR. Patient was seen on morning rounds. She was found resting in bed, comfortably, on room air. She is sleeping, but wakes easily when I say her name. She reports continued right chest wall pain; though appears more comfortable than yesterday morning (patient is unable to provide comparison). She denies fever, chest pain, palpitations, dyspnea, abdominal pain, nausea vomiting and diarrhea. Has no other questions or concerns at this time. No concerns per nursing. Reason For Visit: SEPSIS,HYPONATREMIA,HYPOKALEMIA Physical Exam Vital Signs: Temp Pulse Resp BP Pulse Ox 98.1 F 105 H 22 H 154/81 H 96 02/18/20 14:54 02/18/20 14:54 02/18/20 14:54 02/18/20 14:54 02/18/20 14:54 Intake & Output 02/17/20 02/18/20 02/19/20 06:59 06:59 06:59 Intake Total 558 634 Output Total 400 475 Balance 158 159 Weight 79.1 kg 79.5 kg General appearance: PRESENT: no acute distress, cooperative, obese, well- developed, well-nourished, other - frail Head exam: PRESENT: atraumatic, normocephalic Eye exam: PRESENT: conjunctiva pink, EOMI, PERRLA. ABSENT: scleral icterus Mouth exam: PRESENT: moist, tongue midline Teeth exam: PRESENT: poor dentation Respiratory exam: PRESENT: clear to auscultation travis, symmetrical, unlabored. ABSENT: rales, rhonchi, wheezes Cardiovascular exam: PRESENT: irregular rhythm. ABSENT: diastolic murmur, rubs, systolic murmur Pulses: PRESENT: normal dorsalis pedis pul Vascular exam: PRESENT: normal capillary refill Extremities exam: PRESENT: full ROM, pedal edema, +2 edema - BLE. ABSENT: calf tenderness, clubbing Neurological exam: PRESENT: alert, awake, oriented to person, oriented to place, CN II-XII grossly intact, other - Pleasantly confused. ABSENT: motor sensory deficit Psychiatric exam: PRESENT: appropriate affect, normal mood. ABSENT: homicidal ideation, suicidal ideation Skin exam: PRESENT: dry, erythema, warm, other - Zoster rash in a dermatomal distribution under the left lower chest under the breast around the left lower chest towards the upper back. ABSENT: cyanosis, rash Results Laboratory Results: 02/18/20 06:18 02/18/20 06:18 02/18/20 02/18/20 06:18 06:18 WBC 8.8 RBC 3.93 Hgb 12.6 Hct 35.6 L MCV 91 MCH 32.1 MCHC 35.4 RDW 13.9 Plt Count 373 Sodium 123.1 L Potassium 5.2 H Chloride 89 L Carbon Dioxide 26 Anion Gap 8 BUN 17 Creatinine 0.50 L Est GFR ( Amer) > 60 Glucose 111 H Calcium 8.8 Magnesium 1.4 L 02/12/20 02/12/20 07:56 07:56 Creatine Kinase 133 CK-MB (CK-2) 3.04 Troponin I 0.031 Impressions: Chest X-Ray 02/12/20 09:49 IMPRESSION: NO ACUTE RADIOGRAPHIC FINDING IN THE CHEST. Abdomen/Pelvis CT 02/12/20 10:37 IMPRESSION: 1. SURGICAL CHANGES IN THE ABDOMEN. MILD DIFFUSE SMALL BOWEL DILATION PROBABLY DUE TO ILEUS. MECHANICAL OBSTRUCTION LESS LIKELY BUT CANNOT BE EXCLUDED. THERE IS PROMINENT STOOL IN THE RECTUM WHICH COULD BE A FECAL IMPACTION. 2. OTHER CHRONIC CHANGES ABOVE. NO OTHER SIGNIFICANT OR ACUTE FINDING IN THE ABDOMEN OR PELVIS ON CT SCAN WITH IV CONTRAST. Assessment and Plan - Diagnosis (1) Hyponatremia Is this a current diagnosis for this admission?: Yes Plan: Gradually improved. Secondary to poor p.o. intake After she had been off IV fluids, had not had any Lasix in over 24 hours, we were able to get a serum osmolality, urine osmolality, and urine sodium. Her serum osmolality was low. Urine osmolality was at the very low end of normal. Urine sodium was very low. She therefore has insufficient body sodium. p.o. Sodium chloride tabs; increased dosing today Liberalize dietary intake Free water restriction Follow up chemistry (2) Hypomagnesemia Is this a current diagnosis for this admission?: Yes Plan: 1.2-> 1.8-> 1.5-> 1.4 Will start on scheduled oral replacement. Follow up magnesium level. (3) Herpes zoster dermatitis Is this a current diagnosis for this admission?: Yes Plan: Continue Valtrex [place] as needed for pain. Avoid IV narcotics as the patient was sedated for a prolonged length of time. Appropriate contact precautions (4) Acute kidney injury Is this a current diagnosis for this admission?: Yes Plan: Resolved; received generous IV fluids. Avoid nephrotoxic medications as able. Encourage p.o. fluids. Follow-up chemistry (5) Chronic acquired lymphedema Is this a current diagnosis for this admission?: Yes Plan: We will try to elevate her extremities and use compression wraps. (6) Dehydration Is this a current diagnosis for this admission?: Yes Plan: Resolved (7) Hypokalemia Is this a current diagnosis for this admission?: Yes Plan: Resolved. (8) Physical deconditioning Is this a current diagnosis for this admission?: Yes Plan: Plan for d/c to [facility] Discharge planning is consulted. (9) Suspected deep tissue injury of unknown depth of lower back Is this a current diagnosis for this admission?: Yes Plan: Turn and reposition every 2 hours (10) Atrial fibrillation with rapid ventricular response Is this a current diagnosis for this admission?: Yes Plan: She has atrial fibrillation but is not in a rapid response at this time. We have started her on a very low dose of twice a day metoprolol. Not a candidate for chronic anticoagulation. (11) Leukocytosis Qualifiers: Leukocytosis type: other Qualified Code(s): D72.828 - Other elevated white blood cell count Is this a current diagnosis for this admission?: Yes Plan: Resolved. Still not certain what the etiology of this is, but I am suspecting that this was all just a stress response. We have had no direct intervention on this, and the white blood cell count is coming down. - Time Time Spent with patient: 25-34 minutes Medications reviewed and adjusted accordingly: Yes Anticipated discharge: SNF Within: within 48 hours
[2020-02-19] MEDS: HYDROCODONE/ACETAMINOPHEN 5-325 MG TABLET PO PRN ×3 (01:53→22:24)
[2020-02-19 06:03] LABS: ANION GAP 8 (5-19); BLOOD UREA NITROGEN 16 mg/dL (7-20); CALCIUM 8.8 mg/dL (8.4-10.2); CARBON DIOXIDE 25 mmol/L (22-30); CHLORIDE 91 mmol/L (98-107); GLUCOSE 93 mg/dL (75-110); POTASSIUM 5.2 mmol/L (3.6-5.0)
[2020-02-19] MEDS: HEPARIN SOD (PORCINE) 5,000 UNIT/ML 1 ML VIAL SUBCUT SCH ×3 (06:43→22:21)
[2020-02-19] MEDS: VALACYCLOVIR HCL 500 MG TABLET PO SCH ×2 (06:43→17:15)
[2020-02-19] MEDS: METOPROLOL SUCCINATE 25 MG TAB.SR.24H PO SCH (06:44)
[2020-02-19] MEDS ORDERED: SODIUM POLYSTYRENE SULFONATE 15 GM/60 ML PO ONE (09:00)
[2020-02-19] MEDS ORDERED: METOPROLOL SUCCINATE 25 MG TAB.SR.24H PO ONE ×2 (11:07)
[2020-02-19] MEDS: MAGNESIUM OXIDE 400 MG TABLET PO SCH ×2 (11:25→17:15)
[2020-02-19] MEDS: POLYETHYLENE GLYCOL 3350 POWDER 17 GM/1 PACKET PO SCH (11:25)
[2020-02-19] MEDS: SODIUM CHLORIDE 1 GM TABLET PO SCH ×3 (11:25→17:15)
[2020-02-19] MEDS: ONDANSETRON HCL INJ/PF 4 MG/2 ML SDV IV PRN (12:34)
[2020-02-19] MEDS ORDERED: DILTIAZEM HCL INJ 25 MG/5 ML VIAL ONE (12:42)
[2020-02-19] MEDS ORDERED: DILTIAZEM HCL INJ 25 MG/5 ML VIAL IV ONE (13:00)
--- NOTE | 2020-02-19 13:43 | RADIOLOGY REPORT (SQ) ---
EXAM DESCRIPTION: CHEST SINGLE VIEW IMAGES COMPLETED DATE/TIME: 02/19/2020 1:16 pm REASON FOR STUDY: Chest pain COMPARISON: AP view of the chest from 02/12/2020. EXAM PARAMETERS: NUMBER OF VIEWS: One view. TECHNIQUE: An AP view of the chest was obtained. RADIATION DOSE: NA LIMITATIONS: None. FINDINGS: LUNGS AND PLEURA: No consolidation, pleural effusion or pneumothorax. MEDIASTINUM AND HILAR STRUCTURES: Hiatal hernia. HEART AND VASCULAR STRUCTURES: The cardiac silhouette is enlarged. BONES: No acute findings. HARDWARE: Surgical clips in the medial aspect of the left upper quadrant. OTHER: No other finding. IMPRESSION: Cardiomegaly without a superimposed acute cardiopulmonary process. TECHNICAL DOCUMENTATION: JOB ID: [id number] 2010 [employer]- All Rights Reserved Reading location - IP/workstation name: [email or web address]
[2020-02-19 13:44] LABS: CREATINE KINASE MB 1.62 ng/mL (<4.55)
[2020-02-19 13:49] LABS: TROPONIN I < 0.012 ng/mL
[2020-02-19] MEDS ORDERED: ONDANSETRON HCL INJ/PF 4 MG/2 ML SDV IV PRN (14:00)
[2020-02-19] MEDS: DILTIAZEM HCL 30 MG TABLET PO SCH (17:15)
[2020-02-19] MEDS ORDERED: METOPROLOL SUCCINATE 25 MG TAB.SR.24H PO SCH (18:00)
--- NOTE | 2020-02-19 18:14 | PDOC PROGRESS REPORT ---
Subjective Progress Note for:: 02/19/20 Subjective:: The patient is an 84-year-old female with a past medical history of atrial fibrillation, hyperlipidemia, hypertension, heart murmur, migraine, GERD, arthritis, depression, and dementia who was admitted 02/12/2020 for SOCRATES, hyponatremia, hypokalemia, and A.fib RVR. Patient was seen on morning rounds. She was found resting in bed, comfortably, on room air. She was awake, having just finished her breakfast. She was oriented to self, place, but not time or situation. She was quite forgetful during our conversation and repetitively asked me to move her food tray away although I already had. She reports itching to her right chest wall at the site of her shingles outbreak. She appeared comfortable and was not noted to be in any acute distress. She denies fever, chest pain, palpitations, dyspnea, abdominal pain, nausea vomiting and diarrhea. Early afternoon was notified by nursing that the patient had experienced a presyncopal episode while moving from the chair back to the bed followed by vomiting x1. She had been in atrial fibrillation with a heart rate 110-120 this morning; now up to 140. She was provided IV diltiazem push with adequate control of her heart rate to the 70s. Medications further adjusted as below. Reason For Visit: SEPSIS,HYPONATREMIA,HYPOKALEMIA Physical Exam Vital Signs: Temp Pulse Resp BP Pulse Ox 98.2 F 83 16 120/41 L 95 02/19/20 08:21 02/19/20 14:00 02/19/20 08:21 02/19/20 08:21 02/19/20 08:21 Intake & Output 02/18/20 02/19/20 02/20/20 06:59 06:59 06:59 Intake Total 634 1200 Output Total 475 525 Balance 159 675 Weight 79.5 kg 79.3 kg General appearance: PRESENT: no acute distress, obese, well-developed, well- nourished, other - Frail, elderly appearing Head exam: PRESENT: atraumatic, normocephalic Eye exam: PRESENT: conjunctiva pink, EOMI, PERRLA. ABSENT: scleral icterus Mouth exam: PRESENT: moist, tongue midline Teeth exam: PRESENT: poor dentation Respiratory exam: PRESENT: clear to auscultation travis, symmetrical, unlabored, other - Room air. ABSENT: rales, rhonchi, wheezes Cardiovascular exam: PRESENT: irregular rhythm, tachycardia. ABSENT: diastolic murmur, rubs, systolic murmur Vascular exam: PRESENT: normal capillary refill Extremities exam: PRESENT: full ROM, +2 edema - Chronic lymphedema. ABSENT: calf tenderness, clubbing, pedal edema Neurological exam: PRESENT: alert, awake, oriented to person, oriented to place, CN II-XII grossly intact, other - Intermittently confused. ABSENT: oriented to time, oriented to situation, motor sensory deficit Psychiatric exam: PRESENT: appropriate affect, normal mood. ABSENT: homicidal ideation, suicidal ideation Skin exam: PRESENT: dry, warm. ABSENT: cyanosis, intact - Healing shingles rash to left chest wall, rash Results Laboratory Results: 02/18/20 06:18 02/19/20 05:01 02/19/20 05:01 Sodium 124.3 L Potassium 5.2 H Chloride 91 L Carbon Dioxide 25 Anion Gap 8 BUN 16 Creatinine 0.48 L Est GFR ( Amer) > 60 Glucose 93 Calcium 8.8 02/12/20 02/12/20 02/19/20 07:56 07:56 13:00 Creatine Kinase 133 24 L CK-MB (CK-2) 3.04 Troponin I 0.031 02/19/20 13:00 Creatine Kinase CK-MB (CK-2) 1.62 Troponin I < 0.012 Impressions: Abdomen/Pelvis CT 02/12/20 10:37 IMPRESSION: 1. SURGICAL CHANGES IN THE ABDOMEN. MILD DIFFUSE SMALL BOWEL DILATION PROBABLY DUE TO ILEUS. MECHANICAL OBSTRUCTION LESS LIKELY BUT CANNOT BE EXCLUDED. THERE IS PROMINENT STOOL IN THE RECTUM WHICH COULD BE A FECAL IMPACTION. 2. OTHER CHRONIC CHANGES ABOVE. NO OTHER SIGNIFICANT OR ACUTE FINDING IN THE ABDOMEN OR PELVIS ON CT SCAN WITH IV CONTRAST. Chest X-Ray 02/19/20 00:00 IMPRESSION: Cardiomegaly without a superimposed acute cardiopulmonary process. Assessment and Plan - Diagnosis (1) Atrial fibrillation with rapid ventricular response Is this a current diagnosis for this admission?: Yes Plan: A.fib with RVR this am. Attempted rate control with increased p.o. Toprol; ultimately required diltiazem gtt. Have transitioned to p.o. diltiazem 30 mg q6h. Not a candidate for chronic anticoagulation due to fraility/fall risk. (2) Hyponatremia Is this a current diagnosis for this admission?: Yes Plan: Gradually improved; 124.3 today Secondary to poor p.o. intake After she had been off IV fluids, had not had any Lasix in over 24 hours, we were able to get a serum osmolality, urine osmolality, and urine sodium. Her serum osmolality was low. Urine osmolality was at the very low end of normal. Urine sodium was very low. She therefore has insufficient body sodium. Continue p.o. Sodium chloride tabs Liberalize dietary intake Free water restriction Follow up chemistry (3) Hypomagnesemia Is this a current diagnosis for this admission?: Yes Plan: 1.2-> 1.8-> 1.5-> 1.4 Will start on scheduled oral replacement. Follow up magnesium level. (4) Herpes zoster dermatitis Is this a current diagnosis for this admission?: Yes Plan: Continue Valtrex [place] as needed for pain. Avoid IV narcotics as the patient was sedated for a prolonged length of time. Appropriate contact precautions (5) Acute kidney injury Is this a current diagnosis for this admission?: Yes Plan: Resolved; received generous IV fluids. Avoid nephrotoxic medications as able. Encourage p.o. fluids. Follow-up chemistry (6) Chronic acquired lymphedema Is this a current diagnosis for this admission?: Yes Plan: We will try to elevate her extremities and use compression wraps. (7) Dehydration Is this a current diagnosis for this admission?: Yes Plan: Resolved (8) Hypokalemia Is this a current diagnosis for this admission?: Yes Plan: Resolved. (9) Physical deconditioning Is this a current diagnosis for this admission?: Yes Plan: Plan for d/c to [facility] Discharge planning is consulted. (10) Suspected deep tissue injury of unknown depth of lower back Is this a current diagnosis for this admission?: Yes Plan: Turn and reposition every 2 hours (11) Leukocytosis Qualifiers: Leukocytosis type: other Qualified Code(s): D72.828 - Other elevated white blood cell count Is this a current diagnosis for this admission?: Yes Plan: Resolved. Still not certain what the etiology of this is, but I am suspecting that this was all just a stress response. We have had no direct intervention on this, and the white blood cell count is coming down. (12) Chest pain Qualifiers: Chest pain type: unspecified Qualified Code(s): R07.9 - Chest pain, unspecified Is this a current diagnosis for this admission?: Yes Plan: Likely secondary to atrial fibrillation RVR. CXR is benign. EKG shows sinus rhythm without acute or concerning findings. We will trend troponins; initial is negative. Chest pain resolved following diltiazem push and subsequent rate control. - Time Time Spent with patient: 35 or more minutes Medications reviewed and adjusted accordingly: Yes Anticipated discharge: SNF Within: within 48 hours
[2020-02-19 19:33] LABS: CREATINE KINASE MB 1.68 ng/mL (<4.55)
[2020-02-19 19:36] LABS: TROPONIN I < 0.012 ng/mL
[2020-02-20] MEDS: DILTIAZEM HCL 30 MG TABLET PO SCH ×2 (00:24→06:43)
[2020-02-20 01:25] LABS: CREATINE KINASE MB 1.61 ng/mL (<4.55)
[2020-02-20 01:27] LABS: TROPONIN I < 0.012 ng/mL
[2020-02-20] MEDS: VALACYCLOVIR HCL 500 MG TABLET PO SCH (06:43)
[2020-02-20] MEDS: HEPARIN SOD (PORCINE) 5,000 UNIT/ML 1 ML VIAL SUBCUT SCH (06:43)
[2020-02-20 07:33] LABS: ANION GAP 7 (5-19); BLOOD UREA NITROGEN 13 mg/dL (7-20); CARBON DIOXIDE 27 mmol/L (22-30); CHLORIDE 90 mmol/L (98-107); GLUCOSE 83 mg/dL (75-110); POTASSIUM 5.5 mmol/L (3.6-5.0)
[2020-02-20] MEDS ORDERED: SODIUM POLYSTYRENE SULFONATE 15 GM/60 ML PO ONE (09:30)
[2020-02-20] MEDS: MAGNESIUM OXIDE 400 MG TABLET PO SCH (10:10)
[2020-02-20] MEDS: POLYETHYLENE GLYCOL 3350 POWDER 17 GM/1 PACKET PO SCH (10:10)
[2020-02-20] MEDS: SODIUM CHLORIDE 1 GM TABLET PO SCH (10:10)
--- NOTE | 2020-02-20 11:09 | PDOC TRANSFER SUMMARY ---
Impression - Admit/DC Date/PCP Admission Date/Primary Care Provider: 02/12/20 13:41 DERICK SORTO MD Discharge Date: 02/20/20 - Discharge Diagnosis (1) Atrial fibrillation with rapid ventricular response Is this a current diagnosis for this admission?: Yes (2) Hyponatremia Is this a current diagnosis for this admission?: Yes (3) Hypomagnesemia Is this a current diagnosis for this admission?: Yes (4) Herpes zoster dermatitis Is this a current diagnosis for this admission?: Yes (5) Acute kidney injury Is this a current diagnosis for this admission?: Yes (6) Chronic acquired lymphedema Is this a current diagnosis for this admission?: Yes (7) Dehydration Is this a current diagnosis for this admission?: Yes (8) Hypokalemia Is this a current diagnosis for this admission?: Yes (9) Physical deconditioning Is this a current diagnosis for this admission?: Yes (10) Suspected deep tissue injury of unknown depth of lower back Is this a current diagnosis for this admission?: Yes (11) Leukocytosis Is this a current diagnosis for this admission?: Yes (12) Chest pain Is this a current diagnosis for this admission?: Yes - Additional Information Resuscitation Status: Do Not Resuscitate Discharge Diet: As Tolerated, Regular Discharge Activity: Activity As Tolerated, Balance Activity w/Rest Referrals: DERICK SORTO MD [Primary Care Provider] - Follow up as needed Prescriptions: Magnesium Oxide [Mag-Ox 400 mg Tablet] 400 mg PO BID #60 tablet Hydrocodone/Acetaminophen [[place] 5-325 mg Tablet] 1 tab PO Q6HP PRN #12 tablet PRN Reason: Sodium Chloride [Sodium Chloride 1 gm Tablet] 2 gm PO TID #180 tablet Home Medications: Cetirizine HCl [Zyrtec] 10 mg PO QHS 03/15/16 Diltiazem HCl [Diltiazem 24Hr ER] 120 mg PO DAILY 03/15/16 Meloxicam [Mobic] 7.5 mg PO DAILY 04/08/19 Valacyclovir HCl [Valtrex] 1,000 mg PO TID 02/12/20 Hydrocodone/Acetaminophen [[place] 5-325 mg Tablet] 1 tab PO Q6HP PRN #12 tablet 02/20/20 Magnesium Oxide [Mag-Ox 400 mg Tablet] 400 mg PO BID #60 tablet 02/20/20 Polyethylene Glycol 3350 [Miralax Powder 17 gm/Packet] 17 gm PO DAILY powd.pack 02/20/20 Sodium Chloride [Sodium Chloride 1 gm Tablet] 2 gm PO TID #180 tablet 02/20/20 History of Present Illiness History of Present Illness: Per H&P by Dr. Sánchez: TRINIDAD REHMAN is a 84 year old female with multiple medical comorbidities who is an awful historian. The information is therefore obtained from the chart. From what I can gather, the patient was sent here after falling off the toilet at home. She is cared for by her daughter and her son-in-law, and they could not get her up off the floor so they called EMS. They then notified someone that they could not take care of her at home anymore. Apparently she is gotten progressively weaker and more frail. I do not have any information about her recent level of p.o. intake. Her apparently when EMS came to get her as her blood pressure was low and so they gave her 1 L of LR. I brought her in the ER where she had an elevated BUN and creatinine, and a sodium of 118. She also had a leukocytosis. She was afebrile. The only thing she was complaining of was not having gotten her pain medication. She got 2 more liters of IV normal saline rapidly infused. Fortunately, this did not cause her sodium to elevate when it was checked several hours later. CT of her abdomen was unremarkable except for a mild ileus and a large stool burden. Chest x-ray was negative. Patient has had multiple loose bowel movements that were mostly watery without a lot of solid stool in the ER. She had an elevated temperature of the ER but no outright fever. She has an area on her sacrum of a suspected deep tissue injury but no broken skin. Urinalysis was unremarkable. She also has a large rash on the left side of her lower chest and upper abdomen. Hospital Course Hospital Course: (1) Atrial fibrillation with rapid ventricular response Now rate controlled on p.o. diltiazem. A.fib with RVR Attempted rate control with increased p.o. Toprol; ultimately required diltiazem push. Have transitioned to p.o. diltiazem 30 mg q6h. Not a candidate for chronic anticoagulation due to fraility/fall risk. (2) Hyponatremia Has improved; now stable at 124.1 today Secondary to poor p.o. intake After she had been off IV fluids, had not had any Lasix in over 24 hours, we were able to get a serum osmolality, urine osmolality, and urine sodium. Her serum osmolality was low. Urine osmolality was at the very low end of normal. Urine sodium was very low. She therefore has insufficient body sodium. Continue p.o. Sodium chloride tabs Liberalize dietary intake Free water restriction to 2L daily (review of I&Os shows minimal oral intake; ~300ml daily) (3) Hypomagnesemia 1.2-> 1.8-> 1.5-> 1.4 Continue scheduled oral replacement. (4) Herpes zoster dermatitis Healing well. Continue Valtrex [place] as needed for pain. Appropriate contact precautions (5) Acute kidney injury Resolved; received generous IV fluids. Avoid nephrotoxic medications as able. Encourage p.o. fluids. (6) Chronic acquired lymphedema Chronic (7) Dehydration Resolved Secondary to poor p.o. intake. (8) Hypokalemia Resolved. (9) Physical deconditioning Plan for d/c to [facility] Plan to transition to hospice/comfort care per facility protocols upon admission to LTC. (10) Suspected deep tissue injury of unknown depth of lower back Turn and reposition every 2 hours (11) Leukocytosis Resolved. (12) Chest pain Resolved. Likely secondary to atrial fibrillation RVR. CXR is benign. EKG shows sinus rhythm without acute or concerning findings. Troponins negative x3. Chest pain resolved following diltiazem push and subsequent rate control. (13) Hypernatremia Trending upward despite IVF, encouraged oral intake, and Kayexalate. Discuss with patient's daughter prior to discharge; understands that corrective measures are only temporary. Discussed that her decreased nutritional/fluid intake is natural at end-of-life. Daughter is understandable and requests transition to comfort focus upon arrival to LTC. Physical Exam Vital Signs: Temp Pulse Resp BP Pulse Ox 97.9 F 96 21 H 110/82 100 02/20/20 08:48 02/20/20 08:48 02/20/20 08:48 02/20/20 08:48 02/20/20 08:48 Intake & Output 02/19/20 02/20/20 02/21/20 06:59 06:59 06:59 Intake Total 1200 357 Output Total 525 1350 Balance 675 -993 Weight 79.3 kg 78.2 kg General appearance: PRESENT: no acute distress, cooperative, obese, well- developed, well-nourished, other - frail Head exam: PRESENT: atraumatic, normocephalic Eye exam: PRESENT: conjunctiva pink, EOMI, PERRLA. ABSENT: scleral icterus Mouth exam: PRESENT: moist, tongue midline Teeth exam: PRESENT: poor dentation Respiratory exam: PRESENT: clear to auscultation travis, symmetrical, unlabored. ABSENT: rales, rhonchi, wheezes Cardiovascular exam: PRESENT: irregular rhythm. ABSENT: diastolic murmur, rubs, systolic murmur Pulses: PRESENT: +1 pedal pulses bilateral Vascular exam: PRESENT: normal capillary refill GI/Abdominal exam: PRESENT: normal bowel sounds, soft. ABSENT: distended, guarding, mass, organolmegaly, rebound, tenderness Rectal exam: PRESENT: deferred Extremities exam: PRESENT: full ROM. ABSENT: calf tenderness, clubbing, pedal edema Neurological exam: PRESENT: alert, awake, oriented to person, CN II-XII grossly intact, other - Intermittent confusion. ABSENT: oriented to place, oriented to time, oriented to situation, motor sensory deficit Psychiatric exam: PRESENT: appropriate affect, normal mood. ABSENT: homicidal ideation, suicidal ideation Skin exam: PRESENT: dry, intact, warm. ABSENT: cyanosis, rash Results Laboratory Results: WBC 8.8 10^3/uL (4.0-10.5) 02/18/20 06:18 RBC 3.93 10^6/uL (3.72-5.28) 02/18/20 06:18 Hgb 12.6 g/dL (12.0-15.5) 02/18/20 06:18 Hct 35.6 % (36.0-47.0) L 02/18/20 06:18 MCV 91 fl (80-97) 02/18/20 06:18 MCH 32.1 pg (27.0-33.4) 02/18/20 06:18 MCHC 35.4 g/dL (32.0-36.0) 02/18/20 06:18 RDW 13.9 % (11.5-14.0) 02/18/20 06:18 Plt Count 373 10^3/uL (150-450) 02/18/20 06:18 Lymph % (Auto) Not Reportable 02/12/20 07:56 [place] % (Auto) Not Reportable 02/12/20 07:56 Eos % (Auto) Not Reportable 02/12/20 07:56 Baso % (Auto) Not Reportable 02/12/20 07:56 Absolute Neuts (auto) Not Reportable 02/12/20 07:56 Absolute Lymphs (auto) Not Reportable 02/12/20 07:56 Absolute Monos (auto) Not Reportable 02/12/20 07:56 Absolute Eos (auto) Not Reportable 02/12/20 07:56 Absolute Basos (auto) Not Reportable 02/12/20 07:56 Total Counted 100 02/12/20 07:56 Seg Neutrophils % Not Reportable 02/12/20 07:56 Seg Neuts % (Manual) 91 % (42-78) H 02/12/20 07:56 Lymphocytes % (Manual) 5 % (13-45) L 02/12/20 07:56 Monocytes % (Manual) 4 % (3-13) 02/12/20 07:56 Eosinophils % (Manual) 0 % (0-6) 02/12/20 07:56 Basophils % (Manual) 0 % (0-2) 02/12/20 07:56 Abs Neuts (Manual) 25.2 10^3/uL (1.7-8.2) H 02/12/20 07:56 Abs Lymphs (Manual) 1.4 10^3/uL (0.5-4.7) 02/12/20 07:56 Abs Monocytes (Manual) 1.1 10^3/uL (0.1-1.4) 02/12/20 07:56 Absolute Eos (Manual) 0.0 10^3/uL (0.0-0.6) 02/12/20 07:56 Abs Basophils (Manual) 0.0 10^3/uL (0.0-0.2) 02/12/20 07:56 Clumped Platelets PRESENT 02/12/20 07:56 Large Platelets PRESENT 02/12/20 07:56 Platelet Comment ADEQUATE 02/12/20 07:56 Hypochromasia SLIGHT 02/12/20 07:56 Anisocytosis SLIGHT 02/12/20 07:56 Ovalocytes SLIGHT 02/12/20 07:56 PT 15.3 SEC (11.4-15.4) 02/12/20 07:54 INR 1.20 02/12/20 07:54 VBG pH 7.39 (7.30-7.42) 02/12/20 09:35 VBG pCO2 43.6 mmHg (35-63) 02/12/20 09:35 VBG HCO3 25.9 mmol/L (20-32) 02/12/20 09:35 VBG Base Excess 0.7 mmol/L 02/12/20 09:35 Sodium 124.1 mmol/L (137-145) L 02/20/20 06:30 Potassium 5.5 mmol/L (3.6-5.0) H 02/20/20 06:30 Chloride 90 mmol/L (98-107) L 02/20/20 06:30 Carbon Dioxide 27 mmol/L (22-30) 02/20/20 06:30 Anion Gap 7 (5-19) 02/20/20 06:30 BUN 13 mg/dL (7-20) 02/20/20 06:30 Creatinine 0.54 mg/dL (0.52-1.25) 02/20/20 06:30 Est GFR ( Amer) > 60 (>60) 02/20/20 06:30 Est GFR (Non-Af Amer) Cancelled 02/12/20 17:46 Est GFR (MDRD) Non-Af > 60 (>60) 02/20/20 06:30 Glucose 83 mg/dL (75-110) 02/20/20 06:30 POC Glucose 101 mg/dL (70-110) 02/15/20 23:59 Serum Osmolality 252 mOsm/kg (275-301) L 02/16/20 06:09 Lactic Acid 1.5 mmol/L (0.7-2.1) 02/12/20 12:04 Calcium 9.0 mg/dL (8.4-10.2) 02/20/20 06:30 Magnesium 1.6 mg/dL (1.6-2.3) 02/20/20 06:30 Total Bilirubin 1.0 mg/dL (0.2-1.3) 02/12/20 07:56 Direct Bilirubin 0.1 mg/dL (0.0-0.4) 02/12/20 07:56 Neonat Total Bilirubin Not Reportable 02/12/20 07:56 Neonat Direct Bilirubin Not Reportable 02/12/20 07:56 Neonat Indirect Bili Not Reportable 02/12/20 07:56 AST 29 U/L (14-36) 02/12/20 07:56 ALT 17 U/L (<35) 02/12/20 07:56 Alkaline Phosphatase 97 U/L (38-126) 02/12/20 07:56 Creatine Kinase 29 U/L (30-135) L 02/20/20 00:41 CK-MB (CK-2) 1.61 ng/mL (<4.55) 02/20/20 00:41 Troponin I < 0.012 ng/mL 02/20/20 00:41 Total Protein 5.7 g/dL (6.3-8.2) L 02/12/20 07:56 Albumin 3.1 g/dL (3.5-5.0) L 02/12/20 07:56 EGFR Cancelled 02/12/20 17:46 TSH 1.16 uIU/mL (0.47-4.68) 02/12/20 14:19 Urine Color DELFINO 02/12/20 07:56 Urine Appearance SLIGHTLY-CLOUDY 02/12/20 07:56 Urine pH 5.0 (5.0-9.0) 02/12/20 07:56 Ur Specific [place] 1.016 02/12/20 07:56 Urine Protein NEGATIVE mg/dL (NEGATIVE) 02/12/20 07:56 Urine Glucose (UA) NEGATIVE mg/dL (NEGATIVE) 02/12/20 07:56 Urine Ketones NEGATIVE mg/dL (NEGATIVE) 02/12/20 07:56 Urine Blood NEGATIVE (NEGATIVE) 02/12/20 07:56 Urine Nitrite (Reflex) NEGATIVE (NEGATIVE) 02/12/20 07:56 Urine Bilirubin NEGATIVE (NEGATIVE) 02/12/20 07:56 Urine Urobilinogen 2.0 mg/dL (<2.0) H 02/12/20 07:56 Leukocyte Esterase Rfl NEGATIVE (NEGATIVE) 02/12/20 07:56 Urine RBC (Auto) 1 /HPF 02/12/20 07:56 U Hyaline Cast (Auto) 1 /LPF 02/12/20 07:56 Urine Bacteria (Auto) 1+ /HPF 02/12/20 07:56 Urine Red Cell Clumps Cancelled 02/12/20 07:54 Urine WBC (Reflex) 1 /HPF 02/12/20 07:56 Urine WBC Clumps Cancelled 02/12/20 07:54 Squamous Epi Cells Auto 10 /HPF 02/12/20 07:56 U Non-Squamous Epis Auto Cancelled 02/12/20 07:54 Calcium Carbonate Cryst Cancelled 02/12/20 07:54 Calcium Phosphate Cryst Cancelled 02/12/20 07:54 Calcium Oxalate Cr Auto Cancelled 02/12/20 07:54 Leucine Crystals Cancelled 02/12/20 07:54 Cystine Crystals Cancelled 02/12/20 07:54 Uric Acid Cryst (Auto) Cancelled 02/12/20 07:54 Triple Phos Cryst (Auto) Cancelled 02/12/20 07:54 Tyrosine Crystals Cancelled 02/12/20 07:54 Amorphous Sediment Auto Cancelled 02/12/20 07:54 Cellular Casts Cancelled 02/12/20 07:54 Epithelial Casts (Auto) Cancelled 02/12/20 07:54 Fatty Casts Cancelled 02/12/20 07:54 Granular Casts (Auto) Cancelled 02/12/20 07:54 Waxy Casts (Auto) Cancelled 02/12/20 07:54 Broad Casts Cancelled 02/12/20 07:54 RBC Casts (Auto) Cancelled 02/12/20 07:54 WBC Casts (Auto) Cancelled 02/12/20 07:54 Urine Mucus (Auto) FEW /LPF 02/12/20 07:56 U Trichomonas (Auto) Cancelled 02/12/20 07:54 Ur Yeast w Hyphae Cancelled 02/12/20 07:54 Urine Yeast (Budding) Cancelled 02/12/20 07:54 Urine Osmolality 342 mOsm/kg (300-900) 02/16/20 10:45 Urine Sodium < 5 mmol/L (30-90) L 02/16/20 10:45 Urine Ascorbic Acid NEGATIVE (NEGATIVE) 02/12/20 07:56 Stl C. Difficile GDH Ag NEGATIVE (NEGATIVE) 02/12/20 14:40 Stl C.difficile Tox A&B NEGATIVE (NEGATIVE) 02/12/20 14:40 COVID-19 Source NASOPHARYNGEAL 02/17/20 12:30 COVID-19 (STACY) NOT DETECTED 02/17/20 12:30 Slides for Path Review PATHOLOGIST REVIEWED 02/13/20 06:06 02/12/20 02/19/20 02/19/20 07:56 13:00 18:55 CK-MB (CK-2) 3.04 1.62 1.68 Troponin I 0.031 < 0.012 < 0.012 02/20/20 00:41 CK-MB (CK-2) 1.61 Troponin I < 0.012 Impressions: Chest X-Ray 02/12/20 09:49 IMPRESSION: NO ACUTE RADIOGRAPHIC FINDING IN THE CHEST. Abdomen/Pelvis CT 02/12/20 10:37 IMPRESSION: 1. SURGICAL CHANGES IN THE ABDOMEN. MILD DIFFUSE SMALL BOWEL DILATION PROBABLY DUE TO ILEUS. MECHANICAL OBSTRUCTION LESS LIKELY BUT CANNOT BE EXCLUDED. THERE IS PROMINENT STOOL IN THE RECTUM WHICH COULD BE A FECAL IMPACTION. 2. OTHER CHRONIC CHANGES ABOVE. NO OTHER SIGNIFICANT OR ACUTE FINDING IN THE ABDOMEN OR PELVIS ON CT SCAN WITH IV CONTRAST. Chest X-Ray 02/19/20 00:00 IMPRESSION: Cardiomegaly without a superimposed acute cardiopulmonary process. Plan Plan of Treatment: Discharge to [facility]. Palliative Care consultation with Hospice bridge per facility arrangements. Family in understanding that patient's p.o. intake is decreased and electrolyte correction is temporary due to her nutritional status and continued decreased intake. Family desires a "graceful" and natural course toward end-of-life. Continue to take medications as able. Assist with meals. Encourage p.o. fluids. Time Spent: Greater than 30 Minutes Stroke Is this a Stroke Patient?: No Acute Heart Failure - Is this a Heart Failure Patient?: No
--- NOTE | 2020-02-20 11:17 | ADVANCED CARE ---
- Diagnosis (1) Atrial fibrillation with rapid ventricular response Diagnosis Current: Yes (2) Hyponatremia Diagnosis Current: Yes (3) Hypomagnesemia Diagnosis Current: Yes (4) Herpes zoster dermatitis Diagnosis Current: Yes (5) Acute kidney injury Diagnosis Current: Yes (6) Chronic acquired lymphedema Diagnosis Current: Yes (7) Dehydration Diagnosis Current: Yes (8) Hypokalemia Diagnosis Current: Yes (9) Physical deconditioning Diagnosis Current: Yes (10) Suspected deep tissue injury of unknown depth of lower back Diagnosis Current: Yes (11) Leukocytosis Diagnosis Current: Yes (12) Chest pain Diagnosis Current: Yes (13) Hyperkalemia Diagnosis Current: Yes Attendance: Patient's daughter, Carmen Ramirez, by phone Resuscitation Status: Do Not Resuscitate Discussion: Discussed the patient's chronic medical conditions, admitting diagnoses, clinical progress, and overall prognosis given her baseline physical condition, age, and dementia. Daughter reports that she has had difficulty caring for her mother at home. She states that she lives nearby, and frequently has to respond to her mother in the middle of the night for her needs. She has noted a decrease in her overall oral intake, mobility status, and ability to care for ADLs. Discussed the patient's poor nutritional and fluid intake throughout this admission. Reviewed that despite attempts to correct her electrolytes, she appears to have plateaued. We discussed options for additional increased medical interventions (restart of IV fluids) vs. transition to [facility] with palliative to hospice bridge. Ms. Ramirez is agreeable to hospice consultation; states that she wishes her mother's "remaining days to be peaceful and graceful." Requests to move forward with discharge to [facility] with transition to a comfort focus upon arrival. Care Planning Goals: Discharge to LTC Transition focus to comfort; [facility] per facility protocol Palliative care/Hospice consultation Document(s) Completed: DNR Time Spent: 20 min
[2020-02-20 12:34] VITALS: BP 123/65
--- NOTE | 2020-02-20 12:37 | EKG REPORT ---
SEVERITY:- ABNORMAL ECG - ATRIAL FIBRILLATION BORDERLINE T ABNORMALITIES, INFERIOR LEADS : Confirmed by: Gladis Bateman 20-Feb-2020 12:36:39
== END 2020-02-20 15:27 | DRG 641 ==
LOC: ER 07:39 → EH 13:41 → 3S 16:17
PROVIDERS: ADMIT Family Medicine; ATTEND Registered Nurse
DX: E87.1 Hypo-osmolality and hyponatremia (principal); I48.20 Chronic atrial fibrillation, unspecified; N17.9 Acute kidney failure, unspecified; K56.7 Ileus, unspecified; I10 Essential (primary) hypertension; K21.9 Gastro-esophageal reflux disease without esophagitis; E87.6 Hypokalemia; Z90.49 Acquired absence of other specified parts of digestive tract; Z74.01 Bed confinement status; R21 Rash and other nonspecific skin eruption; E78.5 Hyperlipidemia, unspecified; M19.042 Primary osteoarthritis, left hand; M19.041 Primary osteoarthritis, right hand; F32.9 Major depressive disorder, single episode, unspecified; Z79.899 Other long term (current) drug therapy; B02.9 Zoster without complications; E86.0 Dehydration; D72.828 Other elevated white blood cell count; I89.0 Lymphedema, not elsewhere classified; E83.42 Hypomagnesemia; R01.1 Cardiac murmur, unspecified; Z91.81 History of falling; Z20.828 Contact with and (suspected) exposure to other viral communicable diseases
CPT/HCPCS: 36415; 71045; 74177; 80048; 80053; 81001; 82550; 82553; 82803; 82962; 83605; 83735; 83930; 83935; 84300; 84443; 84484; 85025; 85027; 85610; 87040; 87045; 87205; 87324; 87449; 87635; 93005; 93010; 96361; 96365; 96366; 96367; 99285; J1644; J1940; J2270; J2405; J2543; J3370; J3475; J3480; J3490; J7030